=== PATIENT | female | born 1975 | race Caucasian/White ===

== ENCOUNTER → 2016-07-12 | Outpatient (CLI) | payer OTHER ==
--- NOTE | 2016-07-12 13:25 | MM ---
Reason for exam: additional evaluation requested from prior study. History: Patient is nulliparous. Family history of breast cancer in mother at age 68. Took hormonal contraceptives beginning at age 18. Physical Findings: Nurse Summary: 1cm nodule in the left breast at 12:30 (nurse rené). MG Diagnostic Mammo LT w CAD CC and MLO view(s) were taken of the left breast. There are scattered fibroglandular densities. The questioned anterior to middle depth asymmetry medial to the retroareolar plane does not persist on additional views. Palpable marker superiorly. These results were verbally communicated with the patient and result sheet given to the patient on 07/12/16. ASSESSMENT: Incomplete: need additional imaging evaluation, BI-RAD 0 RECOMMENDATION: Ultrasound of the left breast.
--- NOTE | 2016-07-12 13:30 | USB ---
Reason for exam: additional evaluation requested from abnormal screening. History: Patient is nulliparous. Family history of breast cancer in mother at age 68. Took hormonal contraceptives beginning at age 18. US Breast LT Left breast ultrasound includes all four quadrants, the retroareolar region and axilla. Finding demonstrates a 0.46 x 0.54cm echogenic lesion at 12 o'clock suggestive of a lipoma, a 1.5 x 0.3 x 1.7cm dermal lesion at 3 o'clock corresponding to the clinically apparent skin lesion and a 0.4 x 0.3 x 0.3cm echoic lesion at 11 o'clock suggestive of a lipoma. A precautionary 6 month follow up mammogram is recommended. These results were verbally communicated with the patient and result sheet given to the patient on 07/12/16. ASSESSMENT: Probably benign, BI-RAD 3 RECOMMENDATION: Follow-up diagnostic mammogram of the left breast in 6 months. Manage on a clinical basis with regard to 3 o'clock cutaneous lesion possible infected boil.
== END | disposition home or self-care (01) ==
LOC: RADMAMWWP 09:41
PROVIDERS: ATTEND Family Medicine
DX: R92.8 Other abnormal and inconclusive findings on diagnostic imaging of breast (principal)
CPT/HCPCS: 76641; G0206

== ENCOUNTER → 2017-01-15 | Outpatient (CLI) | payer OTHER ==
--- NOTE | 2017-01-16 07:02 | MM ---
Reason for exam: follow-up at short interval from prior study. Last mammogram was performed 6 months ago. History: Patient had first child at age 31. Family history of breast cancer in mother at age 68. Took hormonal contraceptives beginning at age 18. Physical Findings: Nurse did not find any significant physical abnormalities on exam. MG 3D Diag Mammo W/Cad LT CC, MLO, and XCCL view(s) were taken of the left breast. Prior study comparison: July 12, 2016, left breast MG diagnostic mammo LT w CAD. July 12, 2016, left breast US breast LT. June 22, 2015, mammogram. There are scattered fibroglandular densities. The questioned medial asymmetry density is less defined. These results were verbally communicated with the patient and result sheet given to the patient on 01/15/17. ASSESSMENT: Negative, BI-RAD 1 RECOMMENDATION: Routine screening mammogram of both breasts in 5 months. Back on schedule May 2017.
== END | disposition home or self-care (01) ==
LOC: RADMAMWWP 10:14
PROVIDERS: ATTEND Family Medicine
DX: R92.8 Other abnormal and inconclusive findings on diagnostic imaging of breast (principal)
CPT/HCPCS: G0206; G0279

== ENCOUNTER → 2022-07-16 | Outpatient (CLI) | payer OTHER ==
[2022-07-16 13:43] VITALS: BP 155/77; PULSE 53; TEMP 98.2; BMI 60.7
--- NOTE | 2022-07-31 12:01 | P.HPBAR ---
Bariatric H&P - History & Physicial H&P Date: 07/16/22 History & Physicial: Visit/CC: lap band Patient initial contact: Initial weight: Initial weight in pounds: Height: 5 ft 5.5 in Initial BMI: Last weight: Current weight: 168.283 kg Current weight in pounds: 371.00 Current BMI: 60.7 [place] body weight (based on NIH guidelines): 57.833 kg Excess body weight loss: The patient is a 47 year-old F who presents for Bariatric Assessment. This a 47-year-old female is morbidly obese. BMI 61. Patient had Eligio surgery many years ago. She has had no follow-up with us. Patient has failed to lose weight. She is requesting conversion to sleeve gastrectomy. She has multiple comorbidities including diabetes and hypertension. Past Medical History Past Medical History: Atrial Fibrillation, Diabetes Mellitus, Hypertension, Osteoarthritis (OA), Sleep Apnea/CPAP/BIPAP Additional Past Medical History / Comment(s): anemia, uses CPAP, umbillical hernia History of Any Multi-Drug Resistant Organisms: None Reported Past Surgical History: Bariatric Surgery, Section, Hernia Repair Additional Past Surgical History / Comment(s): umbilical hernia. Lap Band 2005 Additional Past Anesthesia/Blood Transfusion Reaction / Comm: 3 transfusions in last 15 yrs . First after child Past Psychological History: Depression Smoking Status: Never smoker Past Alcohol Use History: None Reported Past Drug Use History: None Reported - Past Family History Father Family Medical History: Coronary Artery Disease (CAD), Diabetes Mellitus Mother Family Medical History: Cancer, Thyroid Disorder Additional Family Medical History / Comment(s): brakerry [place] Surgical - Exam Vital Signs Temp Pulse BP 98.2 F 53 L 155/77 07/16/22 13:35 07/16/22 13:35 07/16/22 13:35 - General well developed, well nourished - Eyes PERRL - ENT normal pinna - Neck no masses - Respiratory normal expansion - Cardiovascular Rhythm: regular - Abdomen Abdomen: soft, non tender Bariatric Assessment & Plan Plan: Morbid obesity. Patient was counseled extensively on sleeve gastrectomy. She will need a EGD performed. She will follow-up in 4 weeks. Bariatric Checklist Checklist: Plan: Checklist: EGD: 1. Hiatal hernia: 2. H. Pylori: HgbA1c: Vitamin D: Smoking: Primary care physician referral: Dr. Mojica Psychiatry clearance: Cardiology clearance: Sleep study: Diet journal: VTE risk score: VTE risk level: Rehab needs at discharge:
== END ==
LOC: BARWHC3 13:22
PROVIDERS: ATTEND Surgery
DX: E66.01 Morbid (severe) obesity due to excess calories (principal); Z98.84 Bariatric surgery status; I48.91 Unspecified atrial fibrillation; E11.9 Type 2 diabetes mellitus without complications; I10 Essential (primary) hypertension; M19.90 Unspecified osteoarthritis, unspecified site; Z68.44 Body mass index [BMI] 60.0-69.9, adult; Z88.1 Allergy status to other antibiotic agents; Z88.0 Allergy status to penicillin; Z88.8 Allergy status to other drugs, medicaments and biological substances
CPT/HCPCS: 99211

== ENCOUNTER 2022-08-02 06:57 | Day surgery (SDC) | payer OTHER ==
[2022-07-31 14:05] VITALS: BMI 61.5
[2022-08-02] MEDS ORDERED: LACTATED RINGERS 1,000 ML IV SCH (07:12)
[2022-08-02] MEDS ORDERED: LIDOCAINE 1% (10MG/ML) FOR IV START INTRADERMA PRN (07:12)
[2022-08-02 07:18] VITALS: TEMP 97.6
[2022-08-02 07:29] LABS: Glucose,Whole Blood 73 mg/dL (70-110)
[2022-08-02] MEDS ORDERED: KETAMINE 10 MG/ML 20 ML VIAL ONE (07:38)
[2022-08-02] MEDS ORDERED: LIDOCAINE 2% INJ 20 MG/ML (2 ML VIAL) ONE (07:38)
[2022-08-02] MEDS ORDERED: PROPOFOL 10 MG/ML 20 ML VIAL IV ONE (07:38)
[2022-08-02] MEDS ORDERED: MIDAZOLAM 2 MG/2 ML VIAL ONE (07:38)
--- NOTE | 2022-08-02 08:07 | P.OP ---
Date of Procedure: 08/02/22 Preoperative Diagnosis: Morbid obesity, BMI 59 GERD Screening colonoscopy Postoperative Diagnosis: Antral gastritis External hemorrhoids Procedure(s) Performed: EGD Colonoscopy Anesthesia: MAC Surgeon: Catracho Miller Pathology: other (Antrum) Condition: stable Disposition: PACU Description of Procedure: The patient's placed on the endoscopy table lateral position. She received IV sedation. The gastroscope placed oropharynx passed in the esophagus and into the stomach. Scope was then placed through the pylorus. First and second portion of duodenum appeared normal. Scope was then brought back the antrum this was mildly inflamed. A biopsies performed. Scope was then retroflexed and the remainder the stomach appeared normal. The GE junction was at 40 cm. The distal esophagus appeared normal. Proximal esophagus. Scope withdrawn. Next digital rectal exam was performed. This revealed a few external hemorrhoids. Flexible colonoscope was then placed patient anus and passed throughout the entire colon. The scope could not be placed into the cecum secondary to tortuosity valve. Scope back. The visualized right colon appeared normal. The transverse colon appeared normal. The descending colon appeared normal. The sigmoid colon appeared normal. Scope was then back the rectum this is normal. Scope was withdrawn for patient.
[2022-08-02 08:09] VITALS: RESP 16
[2022-08-02 08:22] VITALS: BP 119/77; PULSE 59
== END 2022-08-02 08:48 | disposition home or self-care (01) ==
LOC: ORWHC2ENDO 06:57
PROVIDERS: ATTEND Surgery
DX: Z12.11 Encounter for screening for malignant neoplasm of colon (principal); K29.50 Unspecified chronic gastritis without bleeding; K64.4 Residual hemorrhoidal skin tags; E66.01 Morbid (severe) obesity due to excess calories; K21.9 Gastro-esophageal reflux disease without esophagitis; I10 Essential (primary) hypertension; E78.5 Hyperlipidemia, unspecified; I48.91 Unspecified atrial fibrillation; G47.33 Obstructive sleep apnea (adult) (pediatric); E11.9 Type 2 diabetes mellitus without complications; F32.A Depression, unspecified; Z79.84 Long term (current) use of oral hypoglycemic drugs; Z68.43 Body mass index [BMI] 50.0-59.9, adult; Z79.899 Other long term (current) drug therapy
CPT/HCPCS: 88305; 45378; 43239; J2250; J2704; J2001

== ENCOUNTER → 2022-08-13 | Outpatient (CLI) | payer OTHER ==
[2022-08-13 13:40] VITALS: BP 143/67; PULSE 56; TEMP 98.9; BMI 57.3
--- NOTE | 2022-09-04 08:40 | P.HPBAR ---
Bariatric H&P - History & Physicial H&P Date: 08/13/22 History & Physicial: Visit/CC: EGD F/U Patient initial contact: Initial weight: Initial weight in pounds: Height: 5 ft 5.5 in Initial BMI: Last weight: Current weight: 158.757 kg Current weight in pounds: 350.00 Current BMI: 57.3 [place] body weight (based on NIH guidelines): 57.833 kg Excess body weight loss: The patient is a 47 year-old F who presents for Bariatric Assessment. Patient presents today for preoperative bariatric consultation. Patient has had lifetime problems obesity. Patient underwent recent EGD. Some mild gastritis. Patient is interested in sleeve gastrectomy. Patient has an excellent understanding of skin gastric sleeve she'll shows a risk Of the procedure including gastric staple line bleeding, perforation or obstruction. Past Medical History Past Medical History: Atrial Fibrillation, Diabetes Mellitus, Eye Disorder, GERD/Reflux, Hyperlipidemia, Hypertension, Osteoarthritis (OA), Sleep Apnea/CPAP/BIPAP Additional Past Medical History / Comment(s): 2 EPISODES OF AFIB. USES C PAP MACHINE. HEALING LT BREAST ABSCESS AREA. RT EYE DRY AMD, LT EYE WET AMD History of Any Multi-Drug Resistant Organisms: None Reported Past Surgical History: Bariatric Surgery, Section, Hernia Repair Additional Past Surgical History / Comment(s): umbilical hernia. Lap Band 2005. COLONOSCOPY/EGD. I & D LT BREAST ABSCESS Past Anesthesia/Blood Transfusion Reactions: No Reported Reaction Additional Past Anesthesia/Blood Transfusion Reaction / Comm: 3 transfusions in last 15 yrs . First after child Past Psychological History: Depression Smoking Status: Never smoker Past Alcohol Use History: None Reported Past Drug Use History: None Reported - Past Family History Father Family Medical History: Coronary Artery Disease (CAD), Diabetes Mellitus Mother Family Medical History: Cancer, Thyroid Disorder Additional Family Medical History / Comment(s): mickie grijalva Surgical - Exam Vital Signs Temp Pulse BP 98.9 F 56 L 143/67 08/13/22 13:34 08/13/22 13:34 08/13/22 13:34 - General well developed, well nourished, no distress - Eyes PERRL - ENT normal pinna - Abdomen Abdomen: soft, non tender Bariatric Assessment & Plan Plan: Morbid obesity. Patient will be attempted to obtain insurance authorization for laparoscopic sleeve gastric. She will follow-up in 8 weeks. Bariatric Checklist Checklist: Plan: Checklist: EGD: 1. Hiatal hernia: 2. H. Pylori: HgbA1c: Vitamin D: Smoking: Primary care physician referral: Dr. Mojica Psychiatry clearance: Cardiology clearance: Sleep study: Diet journal: VTE risk score: VTE risk level: Rehab needs at discharge:
== END ==
LOC: BARWHC3 12:44
PROVIDERS: ATTEND Surgery
DX: E66.01 Morbid (severe) obesity due to excess calories (principal); K29.70 Gastritis, unspecified, without bleeding; I48.91 Unspecified atrial fibrillation; E11.9 Type 2 diabetes mellitus without complications; K21.9 Gastro-esophageal reflux disease without esophagitis; E78.5 Hyperlipidemia, unspecified; I10 Essential (primary) hypertension; M19.90 Unspecified osteoarthritis, unspecified site; H57.9 Unspecified disorder of eye and adnexa; G47.33 Obstructive sleep apnea (adult) (pediatric); Z99.89 Dependence on other enabling machines and devices; Z68.43 Body mass index [BMI] 50.0-59.9, adult; Z98.84 Bariatric surgery status; Z88.0 Allergy status to penicillin; Z88.1 Allergy status to other antibiotic agents; Z88.8 Allergy status to other drugs, medicaments and biological substances; Z79.84 Long term (current) use of oral hypoglycemic drugs; Z79.899 Other long term (current) drug therapy; Z79.85 Long-term (current) use of injectable non-insulin antidiabetic drugs
CPT/HCPCS: 99211

== ENCOUNTER → 2022-10-08 | Outpatient (CLI) | payer OTHER ==
[2022-10-08 11:33] VITALS: BMI 56.9
[2022-10-08 13:03] VITALS: BP 156/72; PULSE 74; TEMP 98.1
[2022-10-08 19:21] LABS: HCT 38.6 % (37.2-46.3); HGB 12.3 d/dL (12.0-15.0); MCH 27.3 pg (27.0-32.0); MCHC 31.9 d/dL (32.0-37.0); MCV 85.8 FL (80.0-97.0); Mean Platelet Volume 9.2 FL (9.5-12.2); NRBC Per 100 WBC 0 X 10*3/uL (0.00-0.01); Platelet Count 243 X 10*3/uL (140-440); RDW 14.6 % (11.5-14.5); WBC 7.02 X 10*3/uL (4.50-10.00)
[2022-10-08 20:23] LABS: ALT 26 U/L (8-44); AST 24 U/L (13-35); Albumin 4.3 d/dL (3.8-4.9); Albumin/Globulin Ratio 1.72 Ratio (1.60-3.17); Alkaline Phosphatase 66 U/L (41-126); BUN/Creat Ratio 23.78 Ratio (12.00-20.00); Blood Urea Nitrogen 21.4 mg/dL (9.0-27.0); Calcium 9.2 mg/dL (8.7-10.3); Carbon Dioxide 22.2 mmol/L (21.6-31.8); Chloride 106 mmol/L (96-109); Globulin 2.5 d/dL (1.6-3.3); Glucose 106 mg/dL (70-110); Potassium 4.4 mmol/L (3.5-5.5); Sodium 143 mmol/L (135-145); Total Bilirubin 0.6 mg/dL (0.3-1.2); Total Protein 6.8 d/dL (6.2-8.2)
== END ==
LOC: BARWHC3 09:03
PROVIDERS: ATTEND Surgery
DX: E88.81 Metabolic syndrome and other insulin resistance (principal); E66.01 Morbid (severe) obesity due to excess calories; Z71.3 Dietary counseling and surveillance; Z68.43 Body mass index [BMI] 50.0-59.9, adult; Z88.0 Allergy status to penicillin; Z88.8 Allergy status to other drugs, medicaments and biological substances
CPT/HCPCS: 80053; 82306; 82607; 82746; 83036; 84425; 85027; 93005; 97804; 99211

== ENCOUNTER 2022-11-12 06:15 | Inpatient (IN) | payer OTHER ==
[~2022-11-12 06:15] MED LIST: ceFAZolin 3 GM in SODIUM CHLORIDE 0.9% 100 ML IVPB PRN
[2022-11-12] MEDS ORDERED: droPERidol 5 MG/2 ML VIAL IVP ONE (06:37)
[2022-11-12] MEDS ORDERED: LIDOCAINE 1% (10MG/ML) FOR IV START INTRADERMA PRN (06:37)
[2022-11-12] MEDS ORDERED: SCOPOLAMINE 1 MG/72 HR PATCH TRANSDERM ONE (06:37)
[2022-11-12] MEDS ORDERED: ONDANSETRON 4 MG/2 ML VIAL IVP ONE (06:37)
[2022-11-12] MEDS ORDERED: DEXAMETHASONE SOD PHOSPHATE 4 MG/ML 1 ML VIAL IV ONE (06:37)
[2022-11-12] MEDS: LACTATED RINGERS 1,000 ML IV SCH (06:46)
[2022-11-12 07:14] LABS: Glucose,Whole Blood 67 mg/dL (70-110)
[2022-11-12] MEDS ORDERED: DEXTROSE 50% SYRINGE 50 ML IVP ONE (07:21)
[2022-11-12] MEDS ORDERED: ENOXAPARIN 40 MG/0.4 ML SYRINGE SQ STA (07:32)
[2022-11-12] MEDS ORDERED: METOCLOPRAMIDE 5 MG/ML 2 ML VIAL ONE (07:35)
[2022-11-12] MEDS ORDERED: HYDROmorphone (PF) 1 MG/ML ONE (07:35)
[2022-11-12] MEDS ORDERED: ROCURONIUM 10 MG/ML (5 ML VIAL) IV ONE (07:35)
[2022-11-12] MEDS ORDERED: SUCCINYLCHOLINE CHLORIDE 200 MG/10 ML VIAL IV ONE (07:35)
[2022-11-12] MEDS ORDERED: ONDANSETRON 4 MG/2 ML VIAL ONE (07:35)
[2022-11-12] MEDS ORDERED: PROPOFOL 10 MG/ML 20 ML VIAL IV ONE (07:35)
[2022-11-12] MEDS ORDERED: NEOSTIGMINE 1 MG/ML 10 ML VIAL ONE (07:35)
[2022-11-12] MEDS ORDERED: LIDOCAINE 2% INJ 20 MG/ML (2 ML VIAL) ONE (07:35)
[2022-11-12] MEDS ORDERED: fentaNYL (PF) 50 MCG/ML 2 ML AMP ONE (07:35)
[2022-11-12] MEDS ORDERED: GLYCOPYRROLATE 0.2 MG/ML 2 ML VIAL ONE (07:35)
[2022-11-12] MEDS ORDERED: KETOROLAC 15 MG/ML 1 ML VIAL ONE (07:35)
[2022-11-12] MEDS ORDERED: METOCLOPRAMIDE 5 MG/ML 2 ML VIAL IVP ONE (07:38)
[2022-11-12 07:40] LABS: Glucose,Whole Blood 114 mg/dL (70-110)
[2022-11-12] MEDS ORDERED: BUPIVACAINE (PF) 0.25% 10 ML VIAL SQ ONE (08:01)
[2022-11-12] MEDS ORDERED: LACTATED RINGERS 1,000 ML IV ONE (08:35)
--- NOTE | 2022-11-12 09:32 | P.GSHP ---
History of Present Illness H&P Date: 11/12/22 Chief Complaint: Morbid obesity This a 47-year-old female who has a lifetime problems obesity. Patient has had a previous LAP-BAND device placed approximately 20 years ago. Patient has failed to lose weight. Her band has been unable to be adjusted secondary to dysphagia related to band adjustment. Patient presents today for removal of LAP-BAND conversion sleeve gastrectomy. Her BMI is 55. She has multiple comorbid is. The prep patient aware the risks of surgery including possible gastric sleeve staple line disruption, bleeding and scarring. Past Medical History Past Medical History: Atrial Fibrillation, Blood Disorder, Diabetes Mellitus, Eye Disorder, GERD/Reflux, Hyperlipidemia, Hypertension, Neurologic Disorder, Osteoarthritis (OA), Sleep Apnea/CPAP/BIPAP Additional Past Medical History / Comment(s): HX MIGRAINES, NONE IN YRS. HX 2 EPISODES OF AFIB. USES CPAP MACHINE. RIGHT EYE DRY MACULAR DEGENERATION, LEFT EYE WET MACULAR DEGENERATION. PRONE TO CYSTS. "LOW BLOOD COUNTS", hx blood [place] sfusions X3, last 7 yrs ago. Neuropathy bilateral feet. History of Any Multi-Drug Resistant Organisms: None Reported Past Surgical History: Bariatric Surgery, Section, Hernia Repair Additional Past Surgical History / Comment(s): Umbilical hernia repair, Lap Band 2005, COLONOSCOPY/EGD, I&D LEFT BREAST ABSCESS. Past Anesthesia/Blood Transfusion Reactions: No Reported Reaction Additional Past Anesthesia/Blood Transfusion Reaction / Comment(s): Hx blood transfusions X3 with no problems, last 7 yrs ago. Past Psychological History: Depression Smoking Status: Never smoker Past Alcohol Use History: None Reported Past Drug Use History: None Reported - Past Family History Father Family Medical History: Coronary Artery Disease (CAD), Diabetes Mellitus Mother Family Medical History: Cancer, Thyroid Disorder Additional Family Medical History / Comment(s): Breast cancer. Medications and Allergies Home Medications Medication Instructions Recorded Confirmed Type Atorvastatin [Lipitor] 20 mg PO QAM 06/21/22 11/12/22 History DULoxetine HCL [Cymbalta] 60 mg PO QAM 06/21/22 11/12/22 History Dulaglutide [Trulicity] 1.5 mg SQ TH 06/21/22 11/12/22 History Metformin Er 750mg 1,500 mg PO HS 06/21/22 11/12/22 History [place]-3 Acid Ethyl Esters [Lovaza] 2 gm PO BID 06/21/22 11/12/22 History glipiZIDE XL [Glucotrol XL] 20 mg PO QAM 06/21/22 11/12/22 History traZODone HCL [Desyrel] 100 mg PO HS 06/21/22 11/12/22 History Metoprolol/Hydrochlorothiazide 1 tab PO QAM 07/31/22 11/12/22 History [Lopressor Hct 100-25 mg Tab] Minocycline HCl [Minocin] 100 mg PO BID 11/08/22 11/12/22 History lisinopriL [Zestril] 5 mg PO HS 11/08/22 11/12/22 History Allergies Allergy/AdvReac Type Severity Reaction Status Date / Time amoxicillin [From Augmentin] Allergy Rash/Hives Verified 11/12/22 06:55 clavulanic acid Allergy Rash/Hives Verified 11/12/22 06:55 [From Augmentin] Penicillins Allergy Rash/Hives Verified 11/12/22 06:55 vancomycin Allergy Dyspnea Verified 11/12/22 06:55 Surgical - Exam Vital Signs Temp Pulse Resp BP Pulse Ox 97.0 F L 48 L 20 100/50 100 11/12/22 06:45 11/12/22 06:45 11/12/22 06:45 11/12/22 06:45 11/12/22 06:45 - General well developed, well nourished, no distress - Eyes PERRL - ENT normal pinna - Neck no masses - Respiratory normal expansion - Cardiovascular Rhythm: regular - Abdomen Large incisional hernia located in the periumbilical area Abdomen: soft, non tender Results - Labs Abnormal Lab Results - Last 24 Hours (Table) 11/12/22 11/12/22 Range/Units 07:12 07:38 POC Glucose (mg/dL) 67 L 114 H (70-110) mg/dL Assessment and Plan Assessment: Morbid obesity. 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
[2022-11-12 09:38] LABS: Glucose,Whole Blood 121 mg/dL (70-110)
[2022-11-12] MEDS ORDERED: ONDANSETRON 4 MG/2 ML VIAL IVP PRN (09:59)
[2022-11-12] MEDS ORDERED: NALOXONE 0.4 MG/ML 1 ML VIAL IV PRN (09:59)
[2022-11-12] MEDS: HYDROmorphone 0.5 MG/0.5 ML SYRINGE IVP PRN ×3 (10:09→13:53)
--- NOTE | 2022-11-12 10:23 | P.OP ---
Date of Procedure: 11/12/22 Preoperative Diagnosis: Morbid obesity, BMI 55 Postoperative Diagnosis: Morbid obesity, BMI 55 Procedure(s) Performed: Laparoscopic removal of LAP-BAND system Laparoscopic sleeve gastrectomy Anesthesia: PANFILO Surgeon: Catracho Miller Estimated Blood Loss (ml): 10 Pathology: other (Stomach) Condition: stable Disposition: PACU Description of Procedure: The patient's placed on the endoscopy table in operating table in the supine position. She received general endotracheal tube anesthesia. She was then placed in dorsal lithotomy position. Her abdomen was prepped and draped usual sterile fashion. Patient had a large incisional hernia located near the umbilicus. Next the skin was anesthetized at the LAP-BAND port site. Using blunt and sharp dissection with cautery the LAP-BAND port was dissected free and then the PEG tube was then cut and the port was removed. Using a 5 mm optical trocar under direct vision the peritoneal cavity was entered. The abdomen was insufflated. After adequate insufflation the laparoscope was placed back into the pleural cavity. Next a 5 mm trocar is placed in the left epigastric position and another 5 mm trocar was placed in the right lateral position a 15 mm trocar is placed in the mid abdominal position and then a 5 mm trochars placed in the left lateral position. The patient had a very large liver. The trocar placement from the liver retractor was not possible. A new 5 mm trochars placed approximate 4 cm below the initial trocar. The left lateral lobe was liver was retracted. The LAP- BAND device was visualized. The adhesions lap band were then lysed using electrocautery. The anterior gastric wall plication was taken down with sharp dissection The LAP-BAND device then cut and withdrawn from the stomach and then withdrawn through the 15 mm trocar. Next the greater curvature of the stomach was dissected. The greater curvature was dissected with the Harmonic scissors. The dissection occurred proximally 4 cm from the pylorus to the level of the angle his. Next a 40-Divehi bougie dilator was placed into the stomach. The powered echelon stapler with staple line reinforcement was used. Then using the URSULA stapler sequential firings of the stapler were performed to create the sleeve gastrectomy. Next the dilator was withdrawn. The stomach was then insufflated with methylene blue. There is no evidence of any extravasation approximate 200 mL of methylene blue saline was placed. This was aspirated. The stomach was then irrigated there is no bleeding seen. The gastric remnant was withdrawn through the 15 mm trocar site. The trochars withdrawn. The skin was closed with interrupted 3-0 Monocryl suture. Sterile dressings was applied. Patient top she will she was sent to recovery room in stable condition.
[2022-11-12] MEDS: KETOROLAC 15 MG/ML 1 ML VIAL IVP SCH ×2 (15:35→17:19)
[2022-11-12] MEDS: ALBUTEROL NEBULIZED 2.5 MG/3 ML INHALATION SCH ×3 (15:35→20:06)
[2022-11-12] MEDS: 0.9% NACL WITH KCL 20 MEQ/L 1,000 ML IV SCH ×2 (16:38→23:25)
[2022-11-12] MEDS: HYDROmorphone 1 MG/ML 1 ML SYRINGE IVP PRN ×2 (17:20→20:46)
[2022-11-12] MEDS: traZODone HCL 100 MG TAB PO SCH (20:46)
[2022-11-12] MEDS: ENOXAPARIN 40 MG/0.4 ML SYRINGE SQ SCH (20:46)
[2022-11-12] MEDS ORDERED: lisinopriL 5 MG TAB PO SCH (21:00)
--- NOTE | 2022-11-12 21:25 | P.CONS ---
History of Present Illness - Reason for Consult Consult date: 11/12/22 Medical management Requesting physician: Catracho Miller - Chief Complaint Sleeve gastrectomy - History of Present Illness This is a pleasant 47 years old female with past medical history of atrial fibrillation, hypertension, diabetes mellitus. SAM with CPAP, polycystic ovarian syndrome. Today patient has undergone lap band removal and underwent sleeve gastrectomy by Dr. Anders Miller. Postprocedure sitting up in a chair. Slight nausea. Some pain at the operative site. No dizziness no LAD noted. No chest pain or shortness of breath. Review of systems: GEN.: Tired EYES: None HEENT: None NECK: None RESPIRATORY: None CARDIOVASCULAR: None GASTROINTESTINAL: Operative site pain GENITOURINARY: None MUSCULOSKELETAL: None LYMPHATICS: None HEMATOLOGICAL: None PSYCHIATRY: None NEUROLOGICAL: None Social history: No smoking. No alcohol. Physical examination: VITAL SIGNS: 98, 60, 18, 135/77, 98% on 2 L GENERAL: BMI 54.7, sitting up in a chair awake slightly uncomfortable. EYES: Pupils equal. Conjunctiva normal. HEENT: External appearance of nose and ears normal, oral cavity grossly normal. NECK: JVD not raised; masses not palpable. HEART: First and second heart sounds are normal; no edema. LUNGS: Respiratory rate normal; clear to auscultation. ABDOMEN: Soft, tender, liver spleen not palpable, no masses palpable. PSYCH: Alert and oriented x3; mood and affect normal. MUSCULOSKELETAL:No Clubbing/cyanosis;muscles-grossly intact NEUROLOGICAL: Cranial nerves grossly intact; no facial asymmetry, power and sensation grossly intact. LYMPHATICS: No lymph nodes palpable in the axilla and neck INVESTIGATIONS, reviewed in the clinical context: 10/08/2022: White count 7 hemoglobin 12.3 platelets 243 potassium 4.4 creatinine 0.9 Assessment and plan: -Postoperative: Removal of lap band and sleeve gastrectomy by Dr. Miller. Bariatric clear liquid diet. -Diabetes mellitus type 2, on oral hypoglycemic. Hold.-Glucotrol XL 20 mg. Trulicity 1.5 mg subcu Saturday,. Follow Accu-Cheks sliding scale -Hyperlipidemia Lipitor 20 mg -GERD Pepcid 20 mg as needed -Depression Desyrel -Essential hypertension Lopressor hydrochlorothiazide 100/50 one tablet daily- -Osteoarthritis Pain meds when necessary -Obstructive sleep apnea CPAP -Morbid obesity BMI 54.7. Patient has undergone sleeve gastrectomy. Weight loss measures. Discussed patient. Questions answered. Past Medical History Past Medical History: Atrial Fibrillation, Diabetes Mellitus, Hypertension, Osteoarthritis (OA), Sleep Apnea/CPAP/BIPAP Additional Past Medical History / Comment(s): anemia History of Any Multi-Drug Resistant Organisms: None Reported Past Surgical History: Section Additional Past Surgical History / Comment(s): umbilical hernia. Lap Band In place Additional Past Anesthesia/Blood Transfusion Reaction / Comment(s): 3 transfusions in last 15 yrs . First after child Past Psychological History: Depression Smoking Status: Never smoker Past Alcohol Use History: None Reported Past Drug Use History: None Reported - Past Family History Father Family Medical History: Coronary Artery Disease (CAD), Diabetes Mellitus Mother Family Medical History: Cancer, Thyroid Disorder Additional Family Medical History / Comment(s): brakerry grijalva Past Medical History Past Medical History: Atrial Fibrillation, Blood Disorder, Diabetes Mellitus, Eye Disorder, GERD/Reflux, Hyperlipidemia, Hypertension, Neurologic Disorder, Osteoarthritis (OA), Sleep Apnea/CPAP/BIPAP Additional Past Medical History / Comment(s): HX MIGRAINES, NONE IN YRS. HX 2 EPISODES OF AFIB. USES CPAP MACHINE. RIGHT EYE DRY MACULAR DEGENERATION, LEFT EYE WET MACULAR DEGENERATION. PRONE TO CYSTS. "LOW BLOOD COUNTS", hx blood transfusions X3, last 7 yrs ago. Neuropathy bilateral feet. History of Any Multi-Drug Resistant Organisms: None Reported Past Surgical History: Bariatric Surgery, Section, Hernia Repair Additional Past Surgical History / Comment(s): Umbilical hernia repair, Lap Band 2005, COLONOSCOPY/EGD, I&D LEFT BREAST ABSCESS. Past Anesthesia/Blood Transfusion Reactions: No Reported Reaction Additional Past Anesthesia/Blood Transfusion Reaction / Comm: Hx blood transfusions X3 with no problems, last 7 yrs ago. Past Psychological History: Depression Smoking Status: Never smoker Past Alcohol Use History: None Reported Past Drug Use History: None Reported - Past Family History Father Family Medical History: Coronary Artery Disease (CAD), Diabetes Mellitus Mother Family Medical History: Cancer, Thyroid Disorder Additional Family Medical History / Comment(s): Breast cancer. Medications and Allergies Home Medications Medication Instructions Recorded Confirmed Type Atorvastatin [Lipitor] 20 mg PO QAM 06/21/22 11/12/22 History DULoxetine HCL [Cymbalta] 60 mg PO QAM 06/21/22 11/12/22 History Dulaglutide [Trulicity] 1.5 mg SQ TH 06/21/22 11/12/22 History Metformin Er 750mg 1,500 mg PO HS 06/21/22 11/12/22 History [place]-3 Acid Ethyl Esters [Lovaza] 2 gm PO BID 06/21/22 11/12/22 History glipiZIDE XL [Glucotrol XL] 20 mg PO QAM 06/21/22 11/12/22 History traZODone HCL [Desyrel] 100 mg PO HS 06/21/22 11/12/22 History Metoprolol/Hydrochlorothiazide 1 tab PO QAM 07/31/22 11/12/22 History [Lopressor Hct 100-25 mg Tab] Minocycline HCl [Minocin] 100 mg PO BID 11/08/22 11/12/22 History lisinopriL [Zestril] 5 mg PO HS 11/08/22 11/12/22 History Allergies Allergy/AdvReac Type Severity Reaction Status Date / Time amoxicillin [From Augmentin] Allergy Rash/Hives Verified 11/12/22 06:55 clavulanic acid Allergy Rash/Hives Verified 11/12/22 06:55 [From Augmentin] Penicillins Allergy Rash/Hives Verified 11/12/22 06:55 vancomycin Allergy Dyspnea Verified 11/12/22 06:55 Physical Exam Vitals: Vital Signs Temp Pulse Pulse Pulse Pulse Resp BP 11/12/22 18:58 98.0 F 60 18 135/77 11/12/22 16:54 11/12/22 16:44 60 11/12/22 16:35 56 L 11/12/22 15:17 97.4 F L 54 L 18 155/84 11/12/22 14:43 56 L 17 148/66 11/12/22 14:15 63 17 141/61 11/12/22 13:45 56 L 23 138/63 11/12/22 13:15 55 L 16 113/58 11/12/22 12:45 52 L 14 157/75 11/12/22 12:15 54 L 12 139/64 11/12/22 11:45 56 L 17 160/74 11/12/22 11:15 54 L 15 160/76 11/12/22 10:45 64 14 158/77 11/12/22 10:30 56 L 15 167/58 11/12/22 10:15 55 L 16 157/75 11/12/22 10:00 53 L 17 168/80 11/12/22 09:45 57 L 18 157/77 11/12/22 09:29 96.8 F L 63 16 157/78 11/12/22 06:45 97.0 F L 48 L 20 100/50 Pulse Ox 11/12/22 18:58 98 11/12/22 16:54 100 11/12/22 16:44 11/12/22 16:35 11/12/22 15:17 100 11/12/22 14:43 98 11/12/22 14:15 98 11/12/22 13:45 100 11/12/22 13:15 98 11/12/22 12:45 97 11/12/22 12:15 100 11/12/22 11:45 100 11/12/22 11:15 98 11/12/22 10:45 95 11/12/22 10:30 92 L 11/12/22 10:15 95 11/12/22 10:00 95 11/12/22 09:45 94 L 11/12/22 09:29 99 11/12/22 06:45 100 Intake and Output 11/12/22 11/12/22 11/12/22 06:59 14:59 22:59 Intake Total 100 1850 260 Output Total 30 Balance 100 1820 260 Intake: IV 100 1850 Intake, IV Titration 260 Amount 0.9% NaCl with KCl 20 Meq 260 /l 1,000 ml @ 150 mls/hr IV .[id number] [facility] Rx#: [id number] Output: Estimated Blood Loss 30 Other: Voiding Method Toilet Weight 149.2 kg Results Labs: Abnormal Lab Results - Last 24 Hours (Table) 11/12/22 11/12/22 11/12/22 Range/Units 07:12 07:38 09:37 POC Glucose (mg/dL) 67 L 114 H 121 H (70-110) mg/dL
[2022-11-13] MEDS: LACTATED RINGERS 1,000 ML IV SCH (00:18)
[2022-11-13] MEDS: KETOROLAC 15 MG/ML 1 ML VIAL IVP SCH ×2 (00:21→05:44)
[2022-11-13] MEDS: 0.9% NACL WITH KCL 20 MEQ/L 1,000 ML IV SCH ×4 (05:44→13:50)
[2022-11-13] MEDS: ALBUTEROL NEBULIZED 2.5 MG/3 ML INHALATION SCH ×4 (08:27→21:19)
[2022-11-13] MEDS ORDERED: hydroCHLOROthiazide 25 MG TAB PO SCH (09:00)
[2022-11-13] MEDS: HYDROmorphone 1 MG/ML 1 ML SYRINGE IVP PRN ×2 (10:47→18:28)
[2022-11-13] MEDS: ENOXAPARIN 40 MG/0.4 ML SYRINGE SQ SCH ×2 (10:50→20:29)
[2022-11-13] MEDS: DULoxetine HCL 60 MG CAPSULE.DR PO SCH (10:50)
[2022-11-13] MEDS: ATORVASTATIN 20 MG TAB PO SCH (10:50)
[2022-11-13] MEDS: METOPROLOL TARTRATE 50 MG TAB PO SCH (10:51)
[2022-11-13 11:18] LABS: Basophils # (A) 0.01 X 10*3/uL (0.00-0.10); Basophils % (A) 0.1 %; Blood Urea Nitrogen 34.3 mg/dL (9.0-27.0); Calcium 8.6 mg/dL (8.7-10.3); Carbon Dioxide 23.9 mmol/L (21.6-31.8); Chloride 101 mmol/L (96-109); Eosinophils # (A) 0.04 X 10*3/uL (0.04-0.35); Eosinophils % (A) 0.6 %; HCT 34.7 % (37.2-46.3); HGB 10.9 d/dL (12.0-15.0); Lymphocytes # (A) 1.19 X 10*3/uL (0.90-5.00); Lymphocytes % (A) 17.8 %; MCH 27.5 pg (27.0-32.0); MCHC 31.4 d/dL (32.0-37.0); MCV 87.6 FL (80.0-97.0); Mean Platelet Volume 9.4 FL (9.5-12.2); Monocytes # (A) 0.67 X 10*3/uL (0.20-1.00); NRBC Per 100 WBC 0 X 10*3/uL (0.00-0.01); Neutrophils # (A) 4.73 X 10*3/uL (1.80-7.70); Neutrophils % (A) 71.1 %; Phosphorus 4.8 mg/dL (2.4-5.1); Platelet Count 223 X 10*3/uL (140-440); RBC 3.96 X 10*6/uL (4.10-5.20); RDW 15.3 % (11.5-14.5); Sodium 136 mmol/L (135-145); WBC 6.67 X 10*3/uL (4.50-10.00)
--- NOTE | 2022-11-13 11:39 | P.PN ---
Subjective This is a pleasant 47 years old female with past medical history of atrial fibrillation, hypertension, diabetes mellitus. SAM with CPAP, polycystic ovarian syndrome. Today patient has undergone lap band removal and underwent sleeve gastrectomy by Dr. Anders Miller. Postprocedure sitting up in a chair. Slight nausea. Some pain at the operative site. No dizziness no LAD noted. No chest pain or shortness of breath. 11/13/2022 This is a pleasant 47 years old female with morbid obesity underwent laparoscopic removal of the lap band system and laparoscopic sleeve gastrectomy. Today is postoperative day #1. She sitting in chair complaining of pain and shoulder area She also had some discomfort at the surgical site and she is a liquid diet before surgery team. She stated that she needed to straight cath to help her urinate last night. However this morning she denies dysuria or urgency or suprapubic discomfort. Bladder scan was ordered. Also labs came back evidence with acute kidney injury with creatinine went up to 1.9. Creatinine was normal last month. Hemoglobin 10.9 which is expected. Urine analysis is ordered and nephrology consulted. DC Toradol. She is currently on normal saline at 1 50 mL/h. Active Medications Generic Name Dose Route Start Last Admin Trade Name Freq PRN Reason Stop Dose Admin Albuterol Sulfate 2.5 mg 11/12/22 12:00 11/13/22 11:22 Albuterol Nebulized 2.5 Mg/3 Ml INHALATION Not Given RT-QID TANK Atorvastatin Calcium 20 mg 11/13/22 09:00 11/13/22 10:50 Atorvastatin 20 Mg Tab PO 20 mg QAM TANK Administration Duloxetine HCl 60 mg 11/13/22 09:00 11/13/22 10:50 Duloxetine Hcl 60 Mg Capsule.Dr PO 60 mg QAM TANK Administration Enoxaparin Sodium 40 mg 11/12/22 20:00 11/13/22 10:50 Enoxaparin 40 Mg/0.4 Ml Syringe SQ 40 mg Q12H TANK Administration Hydrochlorothiazide 25 mg 11/13/22 09:00 11/13/22 10:50 Hydrochlorothiazide 25 Mg Tab PO 25 mg QAM TANK Administration Hydromorphone HCl 1 mg 11/12/22 09:59 11/13/22 10:47 Hydromorphone 1 Mg/Ml 1 Ml Syringe IVP 1 mg Q3HR PRN Administration Severe Pain (7 to 10) Lactated Ringer's 1,000 mls @ 20 mls/hr 11/12/22 06:37 11/13/22 00:18 Lactated Ringers IV Not Given .Q24H TANK Potassium Chloride/Sodium Chloride 1,000 mls @ 150 mls/hr 11/12/22 15:00 11/13/22 05:48 Ns-Kcl 20 Meq/L Iv Solution IV 11/13/22 15:01 150 mls/hr .Q6H40M TANK Administration Lidocaine HCl 0.1 ml 11/12/22 06:37 Lidocaine 1% (10mg/Ml) For Iv Start INTRADERMA PER PROTOCOL PRN IV Start Lisinopril 5 mg 11/12/22 21:00 11/12/22 20:46 Lisinopril 5 Mg Tab PO 5 mg HS TANK Administration Metoprolol Tartrate 100 mg 11/13/22 09:00 11/13/22 10:51 Metoprolol Tartrate 50 Mg Tab PO 100 mg QAM TANK Administration Naloxone HCl 0.2 mg 11/12/22 09:59 Naloxone 0.4 Mg/Ml 1 Ml Vial IV Q2M PRN Opioid Reversal Dulaglutide [ 1.5 mg 11/15/22 09:00 Trulicity] 1.5 Mg/0. SQ 5 Ml Each TH [facility] Ondansetron HCl 4 mg 11/12/22 09:59 Ondansetron 4 Mg/2 Ml Vial IVP Q8HR PRN Nausea And Vomiting Trazodone HCl 100 mg 11/12/22 21:00 11/12/22 20:46 Trazodone Hcl 100 Mg Tab PO 100 mg HS TANK Administration Objective - Vital Signs Vital signs: Vital Signs Temp 97.7 F 11/13/22 07:45 Pulse 88 11/13/22 08:40 Resp 18 11/13/22 10:47 BP 135/81 11/13/22 07:45 Pulse Ox 99 11/13/22 08:29 FiO2 21 11/13/22 08:29 Intake & Output 11/12/22 11/13/22 11/13/22 18:59 06:59 18:59 Intake Total 2110 Output Total 30 300 Balance 2080 -300 Intake: IV 1850 Intake, IV Titration 260 Amount 0.9% NaCl with KCl 20 Meq 260 /l 1,000 ml @ 150 mls/hr IV .Q6H40M [facility] Rx#: [id number] Output: Urine 300 Straight 300 Estimated Blood Loss 30 Other: Voiding Method Toilet Toilet - Exam -GENERAL: The patient is alert and oriented x3, not in any acute distress. Obese HEENT: Pupils are round and equally reacting to light. EOMI. No scleral icterus. No conjunctival pallor. Normocephalic, atraumatic. No pharyngeal erythema. No thyromegaly. CARDIOVASCULAR: S1 and S2 present. No murmurs, rubs, or gallops. PULMONARY: Chest is clear to auscultation, no wheezing , no crackles. ABDOMEN: Soft, nontender, nondistended, normoactive bowel sounds. No palpable organomegaly. MUSCULOSKELETAL: No joint swelling or deformity. EXTREMITIES: No cyanosis, clubbing, or pedal edema. NEUROLOGICAL: Gross neurological examination did not reveal any focal deficits. SKIN: No rashes. no petechiae. - Labs CBC & Chem 7: 11/13/22 06:25 11/13/22 06:25 Labs: Abnormal Lab Results - Last 24 Hours (Table) 11/13/22 11/13/22 Range/Units 06:25 06:25 RBC 3.96 L (4.10-5.20) X 10*6/uL Hgb 10.9 L (12.0-15.0) d/dL Hct 34.7 L (37.2-46.3) % MCHC 31.4 L (32.0-37.0) d/dL RDW 15.3 H (11.5-14.5) % MPV 9.4 L (9.5-12.2) FL BUN 34.3 H (9.0-27.0) mg/dL Creatinine 1.9 H (0.6-1.5) mg/dL Est GFR (CKD-EPI) 32 L (>=60) Calcium 8.6 L (8.7-10.3) mg/dL Assessment and Plan Plan: - Acute kidney injury, suspected urinary retention. Rule out urinary retention. Check urine analysis. Check bladder scan. Nephrology consult. Decreased Toradol. No evidence of hypotension -Morbid obesity BMI 54.7. Patient has undergone sleeve gastrectomy. Weight loss measures. Postoperative: Removal of lap band and sleeve gastrectomy by and per Dr. Miller. Bariatric clear liquid diet. -Diabetes mellitus type 2, on oral hypoglycemic. Hold.-Glucotrol XL 20 mg. Trulicity 1.5 mg subcu Saturday,. Follow Accu-Cheks sliding scale -Hyperlipidemia Lipitor 20 mg -GERD Pepcid 20 mg as needed -Depression Desyrel -Essential hypertension Lopressor hydrochlorothiazide 100/50 one tablet daily- -Osteoarthritis Pain meds when necessary -Obstructive sleep apnea CPAP Thank you for consulting us, we will follow up with you
[2022-11-13 13:22] VITALS: BMI 54.7
[2022-11-13 13:31] LABS: Appearance,Urine Clear (Clear); Bilirubin,Urine Negative (Negative); Blood,Urine Small (Negative); Color,Urine Light Yellow; Glucose,Urine (UA) Negative (Negative); Hyaline Casts,Urine 1 /lpf (0-2); Ketones,Urine Negative (Negative); Leukocyte Esterase,Urine Negative (Negative); Mucus,Urine Rare /hpf; Nitrite,Urine Negative (Negative); Protein,Urine Negative (Negative); RBC,Urine 2 /hpf (0-5); Specific Gravity,Urine 1.012 (1.001-1.035); Squamous Epithelial Cell,Urine 1 /hpf (0-4); Urobilinogen,Urine <2.0 mg/dL (<2.0); WBC,Urine 1 /hpf (0-5)
--- NOTE | 2022-11-13 14:55 | P.PN ---
Subjective Progress Note Date: 11/13/22 CHIEF COMPLAINT: Morbid obesity HISTORY OF PRESENT ILLNESS: Patient is postop day #1 status post laparoscopic removal of lap band system and laparoscopic sleeve gastrectomy. The patient complaining of abdominal pain. Also complaining of pain in the shoulders. She reports that her swallowing is okay. Patient does not feel ready for discharge. Patient with possible urinary retention. Medicine service has ordered bladder scan and nephrology consulted for acute kidney injury. Patient did have issues with urinating yesterday and required to be straight cathed during the night. Patient reports that she is now urinating without difficulty. Bladder scan did not show evidence of urinary retention. Afebrile. WBC 6.67 Hgb 10.9 creatinine 1.9 magnesium 2.0 PHYSICAL EXAM: VITAL SIGNS: Reviewed. GENERAL: Well-developed in no acute distress. ABDOMEN: Soft. Nondistended. NEUROLOGIC: Alert and oriented. Cranial nerves II through XII grossly intact. ASSESSMENT: 1. Morbid obesity 2. Acute kidney injury PLAN: -Continue bariatric clear liquid diet -Continue IV fluids at 150 mL per hour -Agree with discontinuing the Toradol for GEOFFREY -Gas drops added for gas pain -Encourage patient to ambulate -Discontinue the hydrochlorothiazide and lisinopril because acute kidney injury -Monitor urine output -Encourage patient to use incentive spirometer -Repeat labs in a.m. -DVT prophylaxis Lovenox Physician Property Custodian note has been reviewed by physician. Signing provider agrees with the documented findings, assessment, and plan of care. Objective - Vital Signs Vital signs: Vital Signs Temp 97.5 F L 11/13/22 13:00 Pulse 81 11/13/22 13:00 Resp 16 11/13/22 13:00 BP 128/84 11/13/22 13:00 Pulse Ox 99 11/13/22 13:00 FiO2 21 11/13/22 08:29 Intake & Output 11/12/22 11/13/22 11/13/22 18:59 06:59 18:59 Intake Total 2110 200 Output Total 30 300 Balance 2080 -300 200 Weight 149.2 kg Intake: IV 1850 Intake, IV Titration 260 Amount 0.9% NaCl with KCl 20 Meq 260 /l 1,000 ml @ 150 mls/hr IV .Q6H40M [facility] Rx#: [id number] Oral 200 Output: Urine 300 Straight 300 Estimated Blood Loss 30 Other: Voiding Method Toilet Toilet - Labs CBC & Chem 7: 11/13/22 06:25 11/13/22 06:25 Labs: Abnormal Lab Results - Last 24 Hours (Table) 11/13/22 11/13/22 11/13/22 Range/Units 06:25 06:25 12:44 RBC 3.96 L (4.10-5.20) X 10*6/uL Hgb 10.9 L (12.0-15.0) d/dL Hct 34.7 L (37.2-46.3) % MCHC 31.4 L (32.0-37.0) d/dL RDW 15.3 H (11.5-14.5) % MPV 9.4 L (9.5-12.2) FL BUN 34.3 H (9.0-27.0) mg/dL Creatinine 1.9 H (0.6-1.5) mg/dL Est GFR (CKD-EPI) 32 L (>=60) Calcium 8.6 L (8.7-10.3) mg/dL Urine Blood Small H (Negative) Urine Mucus Rare H (None) /hpf
[2022-11-13] MEDS: SIMETHICONE 40 MG/0.6 ML DROPS 2,000 MG/30 ML BOTTLE PO SCH ×3 (16:56→20:30)
[2022-11-13] MEDS: traZODone HCL 100 MG TAB PO SCH (20:29)
[2022-11-14 05:51] LABS: Glucose,Whole Blood 119 mg/dL (70-110)
[2022-11-14] MEDS ORDERED: HYDROcodone/APAP 15 ML SOLUTION PO PRN (08:01)
[2022-11-14] MEDS: ALBUTEROL NEBULIZED 2.5 MG/3 ML INHALATION SCH ×3 (08:29→16:03)
[2022-11-14] MEDS: LACTATED RINGERS 1,000 ML IV SCH (08:32)
[2022-11-14] MEDS: DULoxetine HCL 60 MG CAPSULE.DR PO SCH (09:22)
[2022-11-14] MEDS: ATORVASTATIN 20 MG TAB PO SCH (09:22)
[2022-11-14] MEDS: METOPROLOL TARTRATE 50 MG TAB PO SCH (09:22)
[2022-11-14] MEDS: SIMETHICONE 40 MG/0.6 ML DROPS 2,000 MG/30 ML BOTTLE PO SCH ×2 (09:24→13:57)
[2022-11-14] MEDS: ENOXAPARIN 40 MG/0.4 ML SYRINGE SQ SCH (09:25)
--- NOTE | 2022-11-14 11:18 | P.NPCON ---
History of Present Illness - Reason for Consult acute renal failure - History of Present Illness Reason for consultation: Acute kidney injury History of present illness: Patient is a 47-year-old female seen in renal consultation for acute kidney injury. Patient baseline creatinine from September 2022 was 0.9 and was elevated at 1.9 yesterday. Patient has history of morbid obesity and underwent laparoscopic sleeve gastrectomy on 11/12/2022. Patient was receiving hydrochlorothiazide and Toradol. Both were last given 11/13/2022. Additionally she was also on lisinopril which was last given 11/12/2022. She was on IV fluids but now has been discontinued. She is on a liquid diet. Denies vomiting or diarrhea. Has been keeping liquids down. Patient does have history of type 2 diabetes. Denies history of coronary artery disease. Denies regular use of nonsteroidals. No vomiting or denies chest pain or shortness of breath. No fever or chills. Hemodynamically stable. Vital signs are stable. General: No acute distress. HEENT: Head exam is unremarkable. LUNGS: No audible rhonchi or wheezes. HEART: Rate and Rhythm are regular. ABDOMEN: Obese, nontender. EXTREMITITES: No edema. Past Medical History Past Medical History: Atrial Fibrillation, Blood Disorder, Diabetes Mellitus, Eye Disorder, GERD/Reflux, Hyperlipidemia, Hypertension, Neurologic Disorder, Osteoarthritis (OA), Sleep Apnea/CPAP/BIPAP Additional Past Medical History / Comment(s): HX MIGRAINES, NONE IN YRS. HX 2 EPISODES OF AFIB. USES CPAP MACHINE. RIGHT EYE DRY MACULAR DEGENERATION, LEFT EYE WET MACULAR DEGENERATION. PRONE TO CYSTS. "LOW BLOOD COUNTS", hx blood transfusions X3, last 7 yrs ago. Neuropathy bilateral feet. History of Any Multi-Drug Resistant Organisms: None Reported Past Surgical History: Bariatric Surgery, Section, Hernia Repair Additional Past Surgical History / Comment(s): Umbilical hernia repair, Lap Band 2005, COLONOSCOPY/EGD, I&D LEFT BREAST ABSCESS. Past Anesthesia/Blood Transfusion Reactions: No Reported Reaction Additional Past Anesthesia/Blood Transfusion Reaction / Comment(s): Hx blood tr ansfusions X3 with no problems, last 7 yrs ago. Past Psychological History: Depression Smoking Status: Never smoker Past Alcohol Use History: None Reported Past Drug Use History: None Reported - Past Family History Father Family Medical History: Coronary Artery Disease (CAD), Diabetes Mellitus Mother Family Medical History: Cancer, Thyroid Disorder Additional Family Medical History / Comment(s): Breast cancer. Medications and Allergies Home Medications Medication Instructions Recorded Confirmed Type Atorvastatin [Lipitor] 20 mg PO QAM 06/21/22 11/12/22 History DULoxetine HCL [Cymbalta] 60 mg PO QAM 06/21/22 11/12/22 History Dulaglutide [Trulicity] 1.5 mg SQ TH 06/21/22 11/12/22 History Metformin Er 750mg 1,500 mg PO HS 06/21/22 11/12/22 History [place]-3 Acid Ethyl Esters [Lovaza] 2 gm PO BID 06/21/22 11/12/22 History glipiZIDE XL [Glucotrol XL] 20 mg PO QAM 06/21/22 11/12/22 History traZODone HCL [Desyrel] 100 mg PO HS 06/21/22 11/12/22 History Metoprolol/Hydrochlorothiazide 1 tab PO QAM 07/31/22 11/12/22 History [Lopressor Hct 100-25 mg Tab] Minocycline HCl [Minocin] 100 mg PO BID 11/08/22 11/12/22 History lisinopriL [Zestril] 5 mg PO HS 11/08/22 11/12/22 History Allergies Allergy/AdvReac Type Severity Reaction Status Date / Time amoxicillin [From Augmentin] Allergy Rash/Hives Verified 11/12/22 06:55 clavulanic acid Allergy Rash/Hives Verified 11/12/22 06:55 [From Augmentin] Penicillins Allergy Rash/Hives Verified 11/12/22 06:55 vancomycin Allergy Dyspnea Verified 11/12/22 06:55 Physical Exam Vitals: Vital Signs Temp Pulse Pulse Resp BP Pulse Ox 11/14/22 10:55 20 11/14/22 08:38 74 11/14/22 08:31 97 11/14/22 08:29 70 11/14/22 07:47 98.5 F 86 22 126/79 92 L 11/14/22 07:45 98.5 F 70 20 130/88 98 11/14/22 01:04 97.8 F 68 19 136/73 97 11/13/22 21:29 70 11/13/22 21:19 68 11/13/22 20:02 98.5 F 64 19 132/57 97 11/13/22 13:00 97.5 F L 81 16 128/84 99 Intake and Output 11/13/22 11/14/22 11/14/22 22:59 06:59 14:59 Intake Total 920 Output Total 2100 700 Balance -1180 -700 Intake: Oral 920 Output: Urine 2100 700 Other: Voiding Method Toilet # Voids 4 Results - Lab Results Most recent lab results Calcium 8.6 mg/dL (8.7-10.3) L 11/13/22 06:25 Phosphorus 4.8 mg/dL (2.4-5.1) 11/13/22 06:25 Magnesium 2.0 mg/dL (1.5-2.4) 11/13/22 06:25 11/13/22 06:25 11/13/22 06:25 Assessment and Plan Plan: Assessment: 1. Acute kidney injury secondary to vasomotor nephropathy from diuretics, KELY inhibitor and NSAIDs. Creatinine 1.9 yesterday. Baseline creatinine near 1 from September 2022. UA benign. 2. Morbid obesity status post laparoscopic sleeve gastrectomy 11/12/2022. 3. Benign hypertension. Controlled. 4. Diabetes mellitus. Plan: Encourage oral intake. Avoid nephrotoxins. Hold off on diuretics and KELY inhibitor at this time. Toradol discontinued. Morning labs pending. If renal function improving, she can be discharged from nephrology standpoint. Repeat BMP and magnesium level to 3 days postdischarge. Follow-up outpatient in 1 week. Case discussed with surgery team. Thank you for the consultation. I will continue to follow the patient during her hospital stay.
[2022-11-14 11:20] LABS: HCT 33.3 % (37.2-46.3); HGB 10.4 d/dL (12.0-15.0); MCH 27.2 pg (27.0-32.0); MCHC 31.2 d/dL (32.0-37.0); MCV 86.9 FL (80.0-97.0); NRBC Per 100 WBC 0 X 10*3/uL (0.00-0.01); Platelet Count 201 X 10*3/uL (140-440); RBC 3.83 X 10*6/uL (4.10-5.20); RDW 15.4 % (11.5-14.5); WBC 5.98 X 10*3/uL (4.50-10.00)
[2022-11-14 11:36] LABS: Carbon Dioxide 23.3 mmol/L (21.6-31.8); Chloride 104 mmol/L (96-109); Glucose 113 mg/dL (70-110); Potassium 5.5 mmol/L (3.5-5.5); Sodium 137 mmol/L (135-145)
--- NOTE | 2022-11-14 12:25 | P.PN ---
Subjective This is a pleasant 47 years old female with past medical history of atrial fibrillation, hypertension, diabetes mellitus. SAM with CPAP, polycystic ovarian syndrome. Today patient has undergone lap band removal and underwent sleeve gastrectomy by Dr. Anders Miller. Postprocedure sitting up in a chair. Slight nausea. Some pain at the operative site. No dizziness no LAD noted. No chest pain or shortness of breath. 11/13/2022 This is a pleasant 47 years old female with morbid obesity underwent laparoscopic removal of the lap band system and laparoscopic sleeve gastrectomy. Today is postoperative day #1. She sitting in chair complaining of pain and shoulder area She also had some discomfort at the surgical site and she is a liquid diet before surgery team. She stated that she needed to straight cath to help her urinate last night. However this morning she denies dysuria or urgency or suprapubic discomfort. Bladder scan was ordered. Also labs came back evidence with acute kidney injury with creatinine went up to 1.9. Creatinine was normal last month. Hemoglobin 10.9 which is expected. Urine analysis is ordered and nephrology consulted. DC Toradol. She is currently on normal saline at 1 50 mL/h. 11/14/2022 patient reports improvement in her shoulder and stomach upset and pain. She feels better overall and she is agreeable to consume liquid diet at her pace and carefully Creatinine back to reference range at 1.0 Toradol discontinued. Nephrology consult is appreciated. Patient looks medically stable Objective - Vital Signs Vital signs: Vital Signs Temp 98.5 F 11/14/22 07:47 Pulse 74 11/14/22 08:38 Resp 22 11/14/22 07:47 BP 126/79 11/14/22 07:47 Pulse Ox 97 11/14/22 08:31 FiO2 21 11/13/22 08:29 Intake & Output 11/13/22 11/14/22 11/14/22 18:59 06:59 18:59 Intake Total 1120 Output Total 850 1950 Balance 270 -1950 Weight 149.2 kg Intake: Oral 1120 Output: Urine 850 1950 Other: Voiding Method Toilet # Voids 4 - Exam -GENERAL: The patient is alert and oriented x3, not in any acute distress. Obese HEENT: Pupils are round and equally reacting to light. EOMI. No scleral icterus. No conjunctival pallor. Normocephalic, atraumatic. No pharyngeal erythema. No thyromegaly. CARDIOVASCULAR: S1 and S2 present. No murmurs, rubs, or gallops. PULMONARY: Chest is clear to auscultation, no wheezing , no crackles. ABDOMEN: Soft, nontender, nondistended, normoactive bowel sounds. No palpable organomegaly. MUSCULOSKELETAL: No joint swelling or deformity. EXTREMITIES: No cyanosis, clubbing, or pedal edema. NEUROLOGICAL: Gross neurological examination did not reveal any focal deficits. SKIN: No rashes. no petechiae. - Labs CBC & Chem 7: 11/14/22 06:28 11/14/22 06:28 Labs: Abnormal Lab Results - Last 24 Hours (Table) 11/13/22 11/13/22 11/13/22 Range/Units 06:25 06:25 12:44 RBC 3.96 L (4.10-5.20) X 10*6/uL Hgb 10.9 L (12.0-15.0) d/dL Hct 34.7 L (37.2-46.3) % MCHC 31.4 L (32.0-37.0) d/dL RDW 15.3 H (11.5-14.5) % MPV 9.4 L (9.5-12.2) FL BUN 34.3 H (9.0-27.0) mg/dL Creatinine 1.9 H (0.6-1.5) mg/dL Est GFR (CKD-EPI) 32 L (>=60) POC Glucose (mg/dL) (70-110) mg/dL Calcium 8.6 L (8.7-10.3) mg/dL Urine Blood Small H (Negative) Urine Mucus Rare H (None) /hpf 11/14/22 Range/Units 05:50 RBC (4.10-5.20) X 10*6/uL Hgb (12.0-15.0) d/dL Hct (37.2-46.3) % MCHC (32.0-37.0) d/dL RDW (11.5-14.5) % MPV (9.5-12.2) FL BUN (9.0-27.0) mg/dL Creatinine (0.6-1.5) mg/dL Est GFR (CKD-EPI) (>=60) POC Glucose (mg/dL) 119 H (70-110) mg/dL Calcium (8.7-10.3) mg/dL Urine Blood (Negative) Urine Mucus (None) /hpf Assessment and Plan Assessment: - Acute kidney injury, suspected urinary retention. Resolved. Nephrology consult. Stop Toradol. No evidence of hypotension Follow-up outpatient -Morbid obesity BMI 54.7. Patient has undergone sleeve gastrectomy. Weight loss measures. Postoperative: Removal of lap band and sleeve gastrectomy by and per Dr. Miller. Bariatric clear liquid diet. -Diabetes mellitus type 2, on oral hypoglycemic. Hold.-Glucotrol XL 20 mg. Trulicity 1.5 mg subcu Saturday,. Follow Accu-Cheks sliding scale -Hyperlipidemia Lipitor 20 mg -GERD Pepcid 20 mg as needed -Depression Desyrel -Essential hypertension Lopressor hydrochlorothiazide 100/50 one tablet daily- -Osteoarthritis Pain meds when necessary -Obstructive sleep apnea CPAP Thank you for consulting us, we will follow up with you
[2022-11-14 13:46] VITALS: BP 126/65; PULSE 72; RESP 16; TEMP 97.6
--- NOTE | 2022-11-14 14:23 | P.DS ---
Providers Date of admission: 11/12/22 06:15 Expected date of discharge: 11/14/22 Attending physician: Catracho Miller Consults: 11/12/22 10:03 Consult Physician Routine Consulting Provider: Chaz Rubio Consult Reason/Comments: med manag Do you want consulting provider notified?: Yes 11/13/22 11:32 Consult Physician Urgent Consulting Provider: Dragan Hyatt Consult Reason/Comments: abelino Do you want consulting provider notified?: Yes Primary care physician: Gail Mojica Hospital Course: Discharge diagnosis 1. Morbid obesity 2. Acute kidney injury Hospital course This is a 47-year-old female with a history of morbid obesity. Status post laparoscopic removal of lap band system and laparoscopic sleeve gastrectomy. Patient tolerated surgery well. Pain control. Tolerating diet. Has been up and ambulating. Having flatus. Afebrile. Patient did have mild acute kidney injury has improved with fluids and discontinuation of the KELY inhibitor, hydrochlorothiazide and Toradol. Patient seen and cleared by nephrology for discharge. Patient is stable for discharge. Please refer to chart for any further details. Physician Credit Assessment Analyst note has been reviewed by physician. Signing provider agrees with the documented findings, assessment, and plan of care. Patient Condition at Discharge: Stable Plan - Discharge Summary Discharge Rx Participant: No New Discharge Prescriptions: New Simethicone 40 mg/0.6 ml Drops [Mylicon Drops] 40 mg PO PCHS PRN #30 ml PRN Reason: Gas Omeprazole [PriLOSEC] 40 mg PO DAILY #30 cap HYDROcodone/APAP 5-325MG [[place] 5-325] 1 tab PO Q6HR PRN 2 Days #5 tab PRN Reason: Pain bisacodyL [Dulcolax] 5 mg PO DAILY PRN #10 tab PRN Reason: Constipation Ondansetron Odt [Zofran Odt] 4 mg PO Q8HR PRN #9 tab PRN Reason: Nausea Metoprolol Tartrate [Lopressor] 100 mg PO QAM 30 Days #60 tab Continue [place]-3 Acid Ethyl Esters [Lovaza] 2 gm PO BID Dulaglutide [Trulicity] 1.5 mg SQ TH Minocycline HCl [Minocin] 100 mg PO BID traZODone HCL [Desyrel] 100 mg PO HS Metformin Er 750mg 1,500 mg PO HS Atorvastatin [Lipitor] 20 mg PO QAM DULoxetine HCL [Cymbalta] 60 mg PO QAM Discontinued glipiZIDE XL [Glucotrol XL] 20 mg PO QAM Metoprolol/Hydrochlorothiazide [Lopressor Hct 100-25 mg Tab] 1 tab PO QAM lisinopriL [Zestril] 5 mg PO HS Discharge Medication List Atorvastatin [Lipitor] 20 mg PO QAM 06/21/22 [History] DULoxetine HCL [Cymbalta] 60 mg PO QAM 06/21/22 [History] Dulaglutide [Trulicity] 1.5 mg SQ TH 06/21/22 [History] Metformin Er 750mg 1,500 mg PO HS 06/21/22 [History] [place]-3 Acid Ethyl Esters [Lovaza] 2 gm PO BID 06/21/22 [History] traZODone HCL [Desyrel] 100 mg PO HS 06/21/22 [History] Minocycline HCl [Minocin] 100 mg PO BID 11/08/22 [History] HYDROcodone/APAP 5-325MG [[place] 5-325] 1 tab PO Q6HR PRN 2 Days #5 tab 11/14/22 [Rx] Metoprolol Tartrate [Lopressor] 100 mg PO QAM 30 Days #60 tab 11/14/22 [Rx] Omeprazole [PriLOSEC] 40 mg PO DAILY #30 cap 11/14/22 [Rx] Ondansetron Odt [Zofran Odt] 4 mg PO Q8HR PRN #9 tab 11/14/22 [Rx] Simethicone 40 mg/0.6 ml Drops [Mylicon Drops] 40 mg PO PCHS PRN #30 ml 11/14/22 [Rx] bisacodyL [Dulcolax] 5 mg PO DAILY PRN #10 tab 11/14/22 [Rx] Follow up Appointment(s)/Referral(s): Shan Waddell DO [REFERRING] - 1 Week Dragan Hyatt DO [STAFF PHYSICIAN] - 1 Week Catracho Miller MD [STAFF PHYSICIAN] - 1 Week Activity/Diet/Wound Care/Special Instructions: activity is restricted till you see your doctor we recommend to check your glucose 4 times a day before each meal and at bed time , keep the results in a log book and bring it to your doctor upon your appointment date if your glucose is less than 70 or more than 400 then call 911 and come to emergency room No driving while taking [place] No lifting over 10 pounds Shower daily. No soaking or tub baths for 2 weeks Very light activity until you are reevaluated at your follow up appointment with your surgeon Discharge Disposition: HOME SELF-CARE
[2022-11-15] MEDS ORDERED: Dulaglutide [Trulicity] 1.5 MG/0.5 ML Each SQ SCH (09:00)
== END 2022-11-14 16:06 | disposition home or self-care (01) | DRG 619 ==
LOC: 2ORMAIN 06:15 → 4SSUR 14:59
PROVIDERS: ADMIT Surgery; ATTEND Surgery
PROC: 0DB64Z3 Excision of Stomach, Percutaneous Endoscopic Approach, Vertical (ICD-10-PCS; principal; 2022-11-12 07:30)
PROC: 0DP64CZ Removal of Extraluminal Device from Stomach, Percutaneous Endoscopic Approach (ICD-10-PCS; 2022-11-12 07:30)
DX: E66.01 Morbid (severe) obesity due to excess calories (principal); N17.0 Acute kidney failure with tubular necrosis; E78.5 Hyperlipidemia, unspecified; E88.89 Other specified metabolic disorders; I10 Essential (primary) hypertension; K21.9 Gastro-esophageal reflux disease without esophagitis; Z68.43 Body mass index [BMI] 50.0-59.9, adult; N14.19 Nephropathy induced by other drugs, medicaments and biological substances; T46.4X5A Adverse effect of angiotensin-converting-enzyme inhibitors, initial encounter; X58.XXXA Exposure to other specified factors, initial encounter; Y92.239 Unspecified place in hospital as the place of occurrence of the external cause; E28.2 Polycystic ovarian syndrome; F32.A Depression, unspecified; G47.33 Obstructive sleep apnea (adult) (pediatric); R13.10 Dysphagia, unspecified; E11.42 Type 2 diabetes mellitus with diabetic polyneuropathy; M19.90 Unspecified osteoarthritis, unspecified site; R33.8 Other retention of urine; N99.89 Other postprocedural complications and disorders of genitourinary system; I48.91 Unspecified atrial fibrillation; G43.909 Migraine, unspecified, not intractable, without status migrainosus; Z79.01 Long term (current) use of anticoagulants; E11.65 Type 2 diabetes mellitus with hyperglycemia; Z79.84 Long term (current) use of oral hypoglycemic drugs; Z79.899 Other long term (current) drug therapy; Z82.49 Family history of ischemic heart disease and other diseases of the circulatory system; Z88.1 Allergy status to other antibiotic agents; Z88.0 Allergy status to penicillin; Z88.8 Allergy status to other drugs, medicaments and biological substances; Z98.84 Bariatric surgery status; Z87.19 Personal history of other diseases of the digestive system
CPT/HCPCS: 80048; 80051; 81001; 81025; 82310; 82565; 83735; 84100; 84520; 85025; 85027; 88307; 88342; 94640; 94760; 94762

== ENCOUNTER → 2022-11-16 | Outpatient (CLI) | payer OTHER ==
[2022-11-16 10:07] VITALS: BP 116/63; PULSE 61; RESP 13; TEMP 98.1; BMI 53.5
== END ==
LOC: BARWHC3 09:12
PROVIDERS: ATTEND Surgery
DX: E66.01 Morbid (severe) obesity due to excess calories (principal); Z98.84 Bariatric surgery status
CPT/HCPCS: 99211

== ENCOUNTER → 2022-12-03 | Outpatient (CLI) | payer OTHER ==
[2022-12-03 10:03] VITALS: BP 138/83; PULSE 56; TEMP 98.1; BMI 52.2
--- NOTE | 2022-12-03 18:16 | P.HPBAR ---
Bariatric H&P - History & Physicial H&P Date: 12/03/22 History & Physicial: Visit/CC: sleeve F/U Patient initial contact: Initial weight: Initial weight in pounds: Height: 5 ft 5.5 in Initial BMI: Last weight: Current weight: 144.696 kg Current weight in pounds: 319.00 Current BMI: 52.2 [place] body weight (based on NIH guidelines): 57.833 kg Excess body weight loss: The patient is a 47 year-old F who presents for Bariatric Assessment. Patient has complaints of some swelling at her LAP-BAND port site. The patient had a previous seroma which was drained there. She feels a seroma has recurred. She is also concerned that she may developing a new abscess in her breast were her previous abscess was. Past Medical History Past Medical History: Atrial Fibrillation, Blood Disorder, Diabetes Mellitus, Eye Disorder, GERD/Reflux, Hyperlipidemia, Hypertension, Neurologic Disorder, Osteoarthritis (OA), Sleep Apnea/CPAP/BIPAP Additional Past Medical History / Comment(s): HX MIGRAINES, NONE IN YRS. HX 2 EPISODES OF AFIB. USES CPAP MACHINE. RIGHT EYE DRY MACULAR DEGENERATION, LEFT EYE WET MACULAR DEGENERATION. PRONE TO CYSTS. "LOW BLOOD COUNTS", hx blood transfusions X3, last 7 yrs ago. Neuropathy bilateral feet. History of Any Multi-Drug Resistant Organisms: None Reported Past Surgical History: Bariatric Surgery, Section, Hernia Repair Additional Past Surgical History / Comment(s): Umbilical hernia repair, Lap Band 2006, COLONOSCOPY/EGD, I&D LEFT BREAST ABSCESS. lap band removed, gastric sleeve 11/12/22 Past Anesthesia/Blood Transfusion Reactions: No Reported Reaction Additional Past Anesthesia/Blood Transfusion Reaction / Comm: Hx blood transfusions X3 with no problems, last 7 yrs ago. Past Psychological History: Depression Smoking Status: Never smoker Past Alcohol Use History: None Reported Past Drug Use History: None Reported - Past Family History Father Family Medical History: Coronary Artery Disease (CAD), Diabetes Mellitus Mother Family Medical History: Cancer, Thyroid Disorder Additional Family Medical History / Comment(s): Breast cancer. Surgical - Exam Vital Signs Temp Pulse BP 98.1 F 56 L 138/83 12/03/22 09:46 12/03/22 09:46 12/03/22 09:46 - General well developed - Abdomen Abdomen is soft. There is evidence of some swelling at the level of LAP-BAND port site. There is no sign of infection. Her previous breast abscess site shows no signs of infection. Bariatric Assessment & Plan Plan: Patient's LAP-BAND port site was aspirated approximately 10 mL of seroma fluid was removed. Patient will continue Bactrim. She'll follow-up in my office in 2 days for recheck. Bariatric Checklist Checklist: Plan: Checklist: EGD: 1. Hiatal hernia: 2. H. Pylori: HgbA1c: Vitamin D: Smoking: Primary care physician referral: Dr. Mojica Psychiatry clearance: Cardiology clearance: Sleep study: Diet journal: VTE risk score: VTE risk level: Rehab needs at discharge:
== END ==
LOC: BARWHC3 09:19
PROVIDERS: ATTEND Surgery
DX: E66.01 Morbid (severe) obesity due to excess calories (principal); I48.91 Unspecified atrial fibrillation; E11.9 Type 2 diabetes mellitus without complications; K21.9 Gastro-esophageal reflux disease without esophagitis; E78.5 Hyperlipidemia, unspecified; I10 Essential (primary) hypertension; M19.90 Unspecified osteoarthritis, unspecified site; G47.30 Sleep apnea, unspecified; Z71.3 Dietary counseling and surveillance; Z68.43 Body mass index [BMI] 50.0-59.9, adult; Z88.0 Allergy status to penicillin; Z88.8 Allergy status to other drugs, medicaments and biological substances; Z88.1 Allergy status to other antibiotic agents; Z79.84 Long term (current) use of oral hypoglycemic drugs; Z79.85 Long-term (current) use of injectable non-insulin antidiabetic drugs; Z98.84 Bariatric surgery status; Z46.51 Encounter for fitting and adjustment of gastric lap band
CPT/HCPCS: 97803; 99212

== ENCOUNTER → 2023-01-07 | Outpatient (CLI) | payer OTHER ==
[2023-01-07 10:39] VITALS: BP 132/84; PULSE 54; TEMP 98.1; BMI 52.4
--- NOTE | 2023-01-09 08:09 | P.HPBAR ---
Bariatric H&P - History & Physicial H&P Date: 01/07/23 History & Physicial: Visit/CC: two month follow up Patient initial contact: Initial weight: Initial weight in pounds: Height: 5 ft 5.5 in Initial BMI: Last weight: Current weight: 145.15 kg Current weight in pounds: 320.00 Current BMI: 52.4 [facility] body weight (based on NIH guidelines): 57.833 kg Excess body weight loss: The patient is a 47 year-old F who presents for Bariatric Assessment. Patient resents today for [facility] follow-up. Her weight is stable. She has minimal GERD. She denies any dysphagia. Past Medical History Past Medical History: Atrial Fibrillation, Blood Disorder, Diabetes Mellitus, Eye Disorder, GERD/Reflux, Hyperlipidemia, Hypertension, Neurologic Disorder, Osteoarthritis (OA), Sleep Apnea/CPAP/BIPAP Additional Past Medical History / Comment(s): HX MIGRAINES, NONE IN YRS. HX 2 EPISODES OF AFIB. USES CPAP MACHINE. RIGHT EYE DRY MACULAR DEGENERATION, LEFT EYE WET MACULAR DEGENERATION. PRONE TO CYSTS. "LOW BLOOD COUNTS", hx blood transfusions X3, last 7 yrs ago. Neuropathy bilateral feet. History of Any Multi-Drug Resistant Organisms: None Reported Past Surgical History: Bariatric Surgery, Section, Hernia Repair Additional Past Surgical History / Comment(s): Umbilical hernia repair, Lap Band 2005, COLONOSCOPY/EGD, I&D LEFT BREAST ABSCESS. lap band removed, gastric sleeve 11/12/22 Past Anesthesia/Blood Transfusion Reactions: No Reported Reaction Additional Past Anesthesia/Blood Transfusion Reaction / Comm: Hx blood transfusions X3 with no problems, last 7 yrs ago. Past Psychological History: Depression Smoking Status: Never smoker Past Alcohol Use History: None Reported Past Drug Use History: None Reported - Past Family History Father Family Medical History: Coronary Artery Disease (CAD), Diabetes Mellitus Mother Family Medical History: Cancer, Thyroid Disorder Additional Family Medical History / Comment(s): Breast cancer. Surgical - Exam Vital Signs Temp Pulse BP 98.1 F 54 L 132/84 01/07/23 10:34 01/07/23 10:34 01/07/23 10:34 - General well developed, well nourished, no distress - Eyes PERRL - ENT normal pinna - Abdomen Abdomen: soft, non tender Bariatric Assessment & Plan Plan: Patient's GERD is minimal she'll be observed. She will follow-up in 4 weeks. Patient was offered to see the dietitian today. Patient declined. She'll work on her improving her dietary choices. Bariatric Checklist Checklist: Plan: Checklist: EGD: 1. Hiatal hernia: 2. H. Pylori: HgbA1c: Vitamin D: Smoking: Primary care physician referral: Dr. Mojica Psychiatry clearance: Cardiology clearance: Sleep study: Diet journal: VTE risk score: VTE risk level: Rehab needs at discharge:
== END ==
LOC: BARWHC3 09:43
PROVIDERS: ATTEND Surgery
DX: K21.9 Gastro-esophageal reflux disease without esophagitis (principal); E66.01 Morbid (severe) obesity due to excess calories; F32.A Depression, unspecified; I48.91 Unspecified atrial fibrillation; E11.9 Type 2 diabetes mellitus without complications; E78.5 Hyperlipidemia, unspecified; I10 Essential (primary) hypertension; M19.90 Unspecified osteoarthritis, unspecified site; G47.30 Sleep apnea, unspecified; G43.909 Migraine, unspecified, not intractable, without status migrainosus; Z86.69 Personal history of other diseases of the nervous system and sense organs; Z98.84 Bariatric surgery status; Z68.43 Body mass index [BMI] 50.0-59.9, adult; Z88.0 Allergy status to penicillin; Z88.8 Allergy status to other drugs, medicaments and biological substances; Z88.1 Allergy status to other antibiotic agents; Z79.85 Long-term (current) use of injectable non-insulin antidiabetic drugs; Z79.84 Long term (current) use of oral hypoglycemic drugs
CPT/HCPCS: 97803; 99211

== ENCOUNTER → 2023-02-04 | Outpatient (CLI) | payer OTHER ==
[2023-02-04 11:28] VITALS: BP 127/76; PULSE 62; TEMP 97.8; BMI 48.9
--- NOTE | 2023-02-04 12:22 | P.HPBAR ---
Bariatric H&P - History & Physicial H&P Date: 02/04/23 History & Physicial: Visit/CC: gastric sleeve F/U Patient initial contact: Initial weight: Initial weight in pounds: Height: 5 ft 5.5 in Initial BMI: Last weight: Current weight: 135.624 kg Current weight in pounds: 299.00 Current BMI: 48.9 [facility] body weight (based on NIH guidelines): 57.833 kg Excess body weight loss: The patient is a 47 year-old F who presents for Bariatric Assessment. Patient stated well. She's lost approximately 21 pounds since her last visit. She's had minimal GERD. Past Medical History Past Medical History: Atrial Fibrillation, Blood Disorder, Diabetes Mellitus, Eye Disorder, GERD/Reflux, Hyperlipidemia, Hypertension, Neurologic Disorder, Osteoarthritis (OA), Sleep Apnea/CPAP/BIPAP Additional Past Medical History / Comment(s): HX MIGRAINES, NONE IN YRS. HX 2 EPISODES OF AFIB. USES CPAP MACHINE. RIGHT EYE DRY MACULAR DEGENERATION, LEFT EYE WET MACULAR DEGENERATION. PRONE TO CYSTS. "LOW BLOOD COUNTS", hx blood transfusions X3, last 7 yrs ago. Neuropathy bilateral feet. History of Any Multi-Drug Resistant Organisms: None Reported Past Surgical History: Bariatric Surgery, Section, Hernia Repair Additional Past Surgical History / Comment(s): Umbilical hernia repair, Lap Band 2005, COLONOSCOPY/EGD, I&D LEFT BREAST ABSCESS. lap band removed, gastric sleeve 11/12/22 Past Anesthesia/Blood Transfusion Reactions: No Reported Reaction Additional Past Anesthesia/Blood Transfusion Reaction / Comm: Hx blood transfusions X3 with no problems, last 7 yrs ago. Past Psychological History: Depression Smoking Status: Never smoker Past Alcohol Use History: None Reported Past Drug Use History: None Reported - Past Family History Father Family Medical History: Coronary Artery Disease (CAD), Diabetes Mellitus Mother Family Medical History: Cancer, Thyroid Disorder Additional Family Medical History / Comment(s): Breast cancer. Surgical - Exam Vital Signs Temp Pulse BP 97.8 F 62 127/76 02/04/23 09:10 02/04/23 09:10 02/04/23 09:10 - General well developed, well nourished, no distress - Eyes PERRL - ENT normal pinna, normal nares - Neck no masses - Respiratory normal expansion - Cardiovascular Rhythm: regular - Abdomen Abdomen: soft, non tender Bariatric Assessment & Plan Plan: Patient is doing well status post sleeve gastrectomy. She will follow-up in 4 weeks. Her GERD is minimal and will be observed. Bariatric Checklist Checklist: Plan: Checklist: EGD: 1. Hiatal hernia: 2. H. Pylori: HgbA1c: Vitamin D: Smoking: Primary care physician referral: Dr. Mojica Psychiatry clearance: Cardiology clearance: Sleep study: Diet journal: VTE risk score: VTE risk level: Rehab needs at discharge:
== END ==
LOC: BARWHC3 09:06
PROVIDERS: ATTEND Surgery
DX: K21.9 Gastro-esophageal reflux disease without esophagitis (principal); E66.01 Morbid (severe) obesity due to excess calories; F32.A Depression, unspecified; I48.91 Unspecified atrial fibrillation; E78.5 Hyperlipidemia, unspecified; E11.40 Type 2 diabetes mellitus with diabetic neuropathy, unspecified; I10 Essential (primary) hypertension; M19.90 Unspecified osteoarthritis, unspecified site; G47.30 Sleep apnea, unspecified; G43.909 Migraine, unspecified, not intractable, without status migrainosus; Z98.84 Bariatric surgery status; Z86.69 Personal history of other diseases of the nervous system and sense organs; Z86.2 Personal history of diseases of the blood and blood-forming organs and certain disorders involving the immune mechanism; Z68.42 Body mass index [BMI] 45.0-49.9, adult; Z88.0 Allergy status to penicillin; Z88.1 Allergy status to other antibiotic agents; Z88.8 Allergy status to other drugs, medicaments and biological substances; Z79.85 Long-term (current) use of injectable non-insulin antidiabetic drugs; Z79.84 Long term (current) use of oral hypoglycemic drugs
CPT/HCPCS: 99211

== ENCOUNTER → 2024-05-18 | Day surgery (SDC) | payer OTHER ==
--- NOTE | 2024-05-25 15:17 | MM ---
Reason for Exam: Post Procedure Mammogram. Last mammogram was performed 8 year(s) and 11 month(s) ago. Patient History: Menarche at age 11. Patient has no children. Postmenopausal. Hormonal Contraceptives, from age 18 until age 20. Mother had breast cancer, age 68. Risk Values: Selena 5 year model risk: 2.0%. NCI Lifetime model risk: 16.6%. Prior Study Comparison: 06/22/2015 Screening Mammogram, Unknown. 07/12/2016 Left Diagnostic Mammogram, [facility]. 01/15/2017 Left Diagnostic Mammogram, [facility]. Tissue Density: Left: The breasts are heterogeneously dense, which may obscure small masses. Findings: There is a surgical clip at the 11:00 position of the left breast appears to be in the area of biopsy. Appears to be in good position in close proximity to the area of biopsy. Pathology Description: Location: 11 o'clock. Marker Left Behind. Needle Type: Bard 14g x 10cm Cores: 6 Skin Nicks: 1 Gauge: 14 Pathology Results: Result: Benign, Fat necrosis. Pathology and radiology were reviewed. Findings are concordant. LEFT BREAST, 11:00, ULTRASOUND GUIDED CORE BIOPSY: Inflamed fat necrosis with acute and chronic mastitis and fibrosis. Negative for malignancy. Favored abscess present. Overall Assessment: Benign Assessment: MG diagnostic mammo LT wo CAD. - Left: Benign, BI-RAD 2. Management: Diagnostic Mammogram of the left breast in 6 months. Electronically signed and approved by: Hamlet Javed M.D. Radiologis
== END ==
LOC: RADUSWWP 12:04
PROVIDERS: ATTEND Surgery
DX: N64.1 Fat necrosis of breast (principal); N61.0 Mastitis without abscess; R92.8 Other abnormal and inconclusive findings on diagnostic imaging of breast; Z78.0 Asymptomatic menopausal state
CPT/HCPCS: 88305; 77065; 19083; A4648

== ENCOUNTER → 2024-06-03 | Outpatient (CLI) | payer OTHER ==
--- NOTE | 2024-06-03 15:23 | MM ---
Reason for Exam: Clinical finding. Last mammogram was performed 9 year(s) and 0 month(s) ago. Patient History: Menarche at age 11. Patient has no children. Postmenopausal. Hormonal Contraceptives, from age 18 until age 20. 05/18/2024, Benign US breast needle core LT on the left side. Mother had breast cancer, age 68. Risk Values: Selena 5 year model risk: 2.3%. NCI Lifetime model risk: 19.3%. Prior Study Comparison: 07/12/2016 Left Diagnostic Mammogram, [facility]. 01/15/2017 Left Diagnostic Mammogram, [facility]. 05/18/2024 Left MG diagnostic mammo LT wo CAD., [facility]. Tissue Density: Left: There are scattered areas of fibroglandular density. Findings: Analyzed By CAD. Microclip upper inner quadrant from benign biopsy 1 month ago. In the axilla, we note prominent varices. Fatty replaced but prominent lymph node in the left axilla seen in 2017 is not appreciable on the current exam. No suspicious microcalcification or discrete abnormality is seen. Overall Assessment: Incomplete: need additional imaging evaluation, BI-RAD 0 Management: Diagnostic Breast Ultrasound of the left breast. [facility], , 06/03/2024 3:20 PM. Electronically signed and approved by: Adelina Gonzalez M.D. Radiologist
--- NOTE | 2024-06-03 15:41 | USB ---
Reason for Exam: Clinical finding. Patient History: Menarche at age 11. Patient has no children. Postmenopausal. Hormonal Contraceptives, from age 18 until age 20. 05/18/2024, Benign US breast needle core LT on the left side. Mother had breast cancer, age 68. Risk Values: Selena 5 year model risk: 2.3%. NCI Lifetime model risk: 19.3%. Technique: Method: Targeted. Prior Study Comparison: 07/12/2016 Left Diagnostic Mammogram, [facility]. 01/15/2017 Left Diagnostic Mammogram, [facility]. 05/18/2024 Left MG diagnostic mammo LT wo CAD., [facility]. Findings: The axilla of the left breast was scanned. Targeted axillary ultrasound was performed corresponding to the patient's lump. There is a lobulated heterogeneous hypoechoic area in the axilla measuring 4.8 x 2.3 cm showing some internal flow. Possible large lymph node or other etiology. We note a large, fatty replaced lymph node on the patient's 2016 exam. Tissue sampling recommended given that this is a palpable abnormality. Overall Assessment: Suspicious, BI-RAD 4 Management: Ultrasound Core Biopsy of the left breast. Results were given to the patient verbally at the time of exam. [facility], , 06/03/2024 3:38 PM. Electronically signed and approved by: Adelina Gonzalez M.D. Radiologist
== END | disposition home or self-care (01) ==
LOC: RADUSWWP 14:57
PROVIDERS: ATTEND Surgery
DX: N63.20 Unspecified lump in the left breast, unspecified quadrant (principal); R92.332 Mammographic heterogeneous density, left breast; Z78.0 Asymptomatic menopausal state; Z92.0 Personal history of contraception; Z80.3 Family history of malignant neoplasm of breast
CPT/HCPCS: 77065; 76642; G0279; 77061

== ENCOUNTER → 2024-06-03 | Outpatient (CLI) | payer OTHER ==
[2024-06-03 12:44] VITALS: BP 180/92; PULSE 83; RESP 16; TEMP 97.9
--- NOTE | 2024-06-03 13:36 | P.GSCN ---
History of Present Illness Consult date: 06/03/24 Reason for Consult: abnormal left breast mammogram History of present illness: Arun is a 49 year old female seen in consultation for Gail Mojica regarding a left breast mammographic abnormality. She had a bilateral screening mammogram done on 04-08-24 which led to a left breast ultrasound on 04-13-24. This led to a left breast ultrasound guided core biopsy of an area of echogenicity 1.6 by 1.6 cm in size on 05-18-24 which was benign concordant fat necrosis and ?abscess. There was a question of a second area in the breast and it was discussed and reviewed with Dr. Cleveland who recommended a repeat left breast diagnostic mammogram. This was identified on a routine mammogram the patient did not feel any new lumps masses or nodules of concern in either breast. Has had an abscess in the left breast at the site of the mammographic abnormality in 2022 which was drained by open surgical drainage. Has not had any other surgery on her breast. She does not have any recent infection or trauma of the breast. She is not complaining of any recent nipple discharge or skin changes. Send she had drainage of the abscess in the left breast she has had nipple inversion on that side. She is not complaining of any fever or chills at this time. note 04-28-24 Gail Mojica reviewed caffiene: 2 cups coffee/day nicotine: none chocolate: weekly BCP: used when in her 20's, also for polycystic ovarian disease hormones: none Family History: mother: breast cancer in her 60's maternal aunt: pancreatic cancer Hormonal History: menarche: 11 , age at : 33 menopause: 46 Surgical History: umbilical hernia repair lap band done and removed to have a gastric sleeve Medical History: HTN type 2 diabetes neuropathy macular degeneration atrial fib; no blood thinners diabetes high BMI sleep apnea anemia blood transfusions infection in her finger Social History: nicotine: none alcohol: none drugs: none Review of Systems - Constitutional Denies fever, Denies weight loss - EENT Eyes: bilateral as per HPI Ears: deny: decreased hearing, tinnitus Ears, nose, mouth and throat: Denies dysphagia - Breasts bilateral: as per HPI - Cardiovascular Denies chest pain, Denies shortness of breath - Respiratory Denies cough, Denies 7 - Gastrointestinal Reports as per HPI - Genitourinary Genitourinary: Denies dysuria, Denies hematuria Menstruation: Reports postmenopausal - Musculoskeletal Reports as per HPI - Integumentary Denies rash, Denies unusual bruising - Neurological Denies headaches, Denies syncope - Psychiatric Reports as per HPI, Reports depression - Endocrine Reports as per HPI - Hematologic/Lymphatic Denies easy bleeding, Denies easy bruising - Allergic/Immunologic Reports as per HPI, Reports seasonal allergies Past Medical History Past Medical History: Atrial Fibrillation, Blood Disorder, Diabetes Mellitus, Eye Disorder, GERD/Reflux, Hyperlipidemia, Hypertension, Neurologic Disorder, Osteoarthritis (OA), Sleep Apnea/CPAP/BIPAP Additional Past Medical History / Comment(s): HX MIGRAINES, NONE IN YRS. HX 2 EPISODES OF AFIB. USES CPAP MACHINE. RIGHT EYE DRY MACULAR DEGENERATION, LEFT EYE WET MACULAR DEGENERATION. PRONE TO CYSTS. "LOW BLOOD COUNTS", hx blood transfusions X3, last 7 yrs ago. Neuropathy bilateral feet and hands. 05-11-24 Current treatment for bone infection on finger History of Any Multi-Drug Resistant Organisms: None Reported Past Surgical History: Bariatric Surgery, Section, Hernia Repair Additional Past Surgical History / Comment(s): Umbilical hernia repair, Lap Band 2005, COLONOSCOPY/EGD, I&D LEFT BREAST ABSCESS. lap band removed, gastric sleeve 11/12/22 Past Anesthesia/Blood Transfusion Reactions: No Reported Reaction Additional Past Anesthesia/Blood Transfusion Reaction / Comm: Hx blood transfusions X3 with no problems, last 7 yrs ago. Past Psychological History: Depression Smoking Status: Never smoker Past Alcohol Use History: None Reported Past Drug Use History: None Reported - Past Family History Father Family Medical History: Coronary Artery Disease (CAD), Diabetes Mellitus Mother Family Medical History: Cancer, Thyroid Disorder Additional Family Medical History / Comment(s): Breast cancer. Medications and Allergies Home Medications Medication Instructions Recorded Confirmed Type Atorvastatin [Lipitor] 20 mg PO QAM 06/21/22 06/03/24 History DULoxetine HCL [Cymbalta] 60 mg PO QAM 06/21/22 06/03/24 History Metformin Er 750mg 750 mg PO HS 06/21/22 06/03/24 History traZODone HCL [Desyrel] 100 mg PO HS 06/21/22 06/03/24 History Minocycline HCl [Minocin] 100 mg PO BID 11/08/22 06/03/24 History Omeprazole [PriLOSEC] 40 mg PO DAILY #30 cap 11/14/22 06/03/24 Rx Allergies Allergy/AdvReac Type Severity Reaction Status Date / Time amoxicillin [From Augmentin] Allergy Rash/Hives Verified 06/03/24 12:41 clavulanic acid Allergy Rash/Hives Verified 06/03/24 12:41 [From Augmentin] Penicillins Allergy Rash/Hives Verified 06/03/24 12:41 vancomycin Allergy Dyspnea Verified 06/03/24 12:41 Surgical - Exam Vital Signs Temp Pulse Resp BP Pulse Ox 97.9 F 83 16 180/92 96 06/03/24 12:41 06/03/24 12:41 06/03/24 12:41 06/03/24 12:41 06/03/24 12:41 - General no distress - Eyes normal ocular movement - Neck trachea midline - Respiratory normal respiratory effort, clear to auscultation - Cardiovascular Rhythm: regular Heart Sounds: normal: S1, S2 - Abdomen Abdomen: soft, non tender, no guarding, no rigid, no rebound - Integumentary normal turgor - Neurologic no disoriented, no combative - Musculoskeletal neuropathy - Psychiatric oriented to time, oriented to person, oriented to place, speech is normal, memory intact Breast Exam: BRA: 4X sports bra inspection: Left breast nipple inversion, bilateral grade 2/3 ptosis Right breast: Multi positional exam no dominant masses or nodules of concern Right axilla: No adenopathy of concern Left breast: Multi positional exam no discrete dominant masses or nodules of concern in the breast Left axilla: Fullness in the left axilla approximately 4 x 4 cm in size freely mobile Findings of hidradenitis in the left axilla Results Bilateral breast mammogram on 04-08-[address] Gonzalez from radiology Left breast ultrasound 04-13-[address] Gonzalez from radiology Assessment and Plan Assessment: Impression: Fibrocystic breast changes Prior history of left breast cyst/abscess 12:00 area where radiographic abnormality is noted Second radiographic abnormality in left breast for which Dr. Gonzalez has requested a repeat diagnostic left breast mammogram Fullness in left axilla for which an ultrasound will be performed Plan: Left breast diagnostic mammogram Left breast ultrasound/axillary ultrasound to evaluate fullness left axillary area Follow-up after above done Repeat left breast mammogram in 6 months with physician exam at that time as well Depending on radiographic findings of above we will determine what we will do with the left axillary fullness and whether any further evaluation needs to be done of the second radiographic site noted in the left breast CC: Dhara Mojica
== END ==
LOC: WWCWWP 11:44
PROVIDERS: ATTEND Surgery
DX: N60.12 Diffuse cystic mastopathy of left breast (principal); Z88.0 Allergy status to penicillin; Z88.1 Allergy status to other antibiotic agents; Z88.8 Allergy status to other drugs, medicaments and biological substances

== ENCOUNTER → 2024-06-09 | Day surgery (SDC) | payer OTHER ==
--- NOTE | 2024-06-12 12:28 | USB ---
Risk Values: Selena 5 year model risk: 2.3%. NCI Lifetime model risk: 19.3%. Prior Study Comparison: 01/15/2017 Left Diagnostic Mammogram, [facility]. 05/18/2024 Left MG diagnostic mammo LT wo CAD., [facility]. 06/03/2024 Left MG 3D diag mammo w/cad LT, [facility]. Pathology Description: Location: axilla. Marker Left Behind. Needle Type: Celero Cores: 2 Gauge: 12 The procedure of ultrasound guided core biopsy was explained to the patient. Benefits, alternatives, and risks were discussed. An informed consent was then obtained. The patient was placed in supine positioning for imaging and for the procedure. Preprocedure ultrasound redemonstrates a oval circumscribed isoechoic area measuring roughly 4.1 x 2.6 cm the left axilla favoring a lipoma. The overlying skin was prepped and draped in usual sterile fashion. Lidocaine buffered with bicarbonate was used as anesthetic into the skin and subcutaneous tissue . Lidocaine with epinephrine is used into the deeper tissue up to area of concern in the left breast. Under ultrasound guidance, a vacuum assisted biopsy gun device was used to obtain 2 core samples. Following this, a biopsy clip was left in lesion. The patient tolerated the procedure well without any immediate complication. The patient was kept in the radiology department for short stay after the procedure and then discharged home in stable condition. Postprocedure mammogram: Not performed due to location in axilla. Mammogram technologist could not successfully images area. The clip deployment was felt successful during real-time ultrasound with image saved. Impression: Successful, uncomplicated ultrasound guided core biopsy of area of concern in the left breast, full pathology results to follow. Low to intermediate index of suspicion noted at time of procedure. [facility], , 06/09/2024 11:07 AM. Pathology Results: Result: Benign. Pathology and radiology were reviewed. Findings are concordant. LEFT AXILLA, CORE BIOPSY: Benign lymph node with partial fat replacement and adjacent fibroadipose tissue. See note. Notes It is noted that the specimen is somewhat limited, and may not be completely outside energy sales representatives of a clinically or radiographically suspicious lymph node. Recommend clinical and imaging study correlation with follow up of the patient as clinically indicated. Overall Assessment: Benign Management: Diagnostic Breast Ultrasound of the left breast in 6 months. Electronically signed and approved by: Get Light M.D.
== END ==
LOC: RADUSWWP 08:19
PROVIDERS: ATTEND Surgery
DX: R92.8 Other abnormal and inconclusive findings on diagnostic imaging of breast (principal); R59.0 Localized enlarged lymph nodes
CPT/HCPCS: 88305; 19083; 38505; A4648

== ENCOUNTER → 2024-07-02 | Outpatient (CLI) | payer OTHER ==
[2024-07-02 10:18] VITALS: BP 151/81; PULSE 83; RESP 18; TEMP 98.5
--- NOTE | 2024-07-02 10:47 | P.PN ---
Subjective Progress Note Date: 07/02/24 Principal diagnosis: adenopathy of the left axilla/biopsy benign History of Present Illness: abnormal left breast mammogram/ left axillary adenopathy History of present illness: Arun is a 49 year old female seen in consultation for Gail Mojica regarding a left breast mammographic abnormality. She had a bilateral screening mammogram done on 04-08-24 which led to a left breast ultrasound on 04-13-24. This led to a left breast ultrasound guided core biopsy of an area of echogenicity 1.6 by 1.6 cm in size on 05-18-24 which was benign concordant fat necrosis and ?abscess. There was a question of a second area in the breast and it was discussed and reviewed with Dr. Cleveland who recommended a repeat left breast diagnostic mammogram. The patient on examination was noted to have some fullness in the left axilla. She subsequently underwent a left breast diagnostic mammogram as well as a left breast axillary ultrasound in 06 03 24. This revealed a lobulated heterogeneous hypoechoic area in the axilla measuring 4.8 x 2.3 cm showing some internal flow. Tissue sampling was recommended. No other areas in the left breast reported to be of concern. Tisue sampling was done on 06-09-24 which was benign concordant but with limited sample This was identified on a routine mammogram the patient did not feel any new lumps masses or nodules of concern in either breast. Has had an abscess in the left breast at the site of the mammographic abnormality in 2022 which was drained by open surgical drainage. Has not had any other surgery on her breast. She does not have any recent infection or trauma of the breast. She is not complaining of any recent nipple discharge or skin changes. Since she had drainage of the abscess in the left breast she has had nipple inversion on that side. 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 will see Ortho today; she is presently on an antibiotic for this as well as minocycline for the boils Objective - Vital Signs Vital signs: Vital Signs Temp 98.5 F 07/02/24 10:15 Pulse 83 07/02/24 10:15 Resp 18 07/02/24 10:15 BP 151/81 07/02/24 10:15 Pulse Ox 100 07/02/24 10:15 FiO2 Intake & Output 07/01/24 07/02/24 07/02/24 18:59 06:59 18:59 Weight 136.078 kg - Constitutional General appearance: Present: cooperative - EENT Eyes: Present: EOMI ENT: Present: hearing grossly normal - Neck Neck: Present: normal ROM - Respiratory Respiratory: bilateral: CTA - Cardiovascular Rhythm: regular Heart sounds: normal: S1, S2 - Integumentary Integumentary Comment(s): She has no cervical, or groin adenopathy of concern, she has no right axillary adenopathy, she has multiple nodes in the left axilla the largest being approximately 4 cm Integumentary: Present: normal turgor - Musculoskeletal Musculoskeletal: Present: gait normal - Psychiatric Psychiatric: Present: A&O x's 3, appropriate affect, intact judgment & insight - Additional findings Additional findings: Breast Exam: 4X sports bra Inspection: Left breast nipple inversion bilateral grade 2/3 ptosis Right breast: Multi positional exam no dominant masses or nodules of concern Right axilla no adenopathy of concern Left breast Multi positional exam no discrete dominant masses or nodules of concern in the breast Left axilla: Fullness in the left axilla approximately 4 x 4 cm freely mobile, hidradenitis in the left axilla Assessment and Plan Assessment: Impression: MRSA right hand Left axillary adenopathy/core biopsy benign Left hidradenitis of the axilla Fibrocystic breast changes Polycystic ovarian disease Plan: Appointment with infectious disease in [place] Dr. Gunn Follow-up 1 month Discussed with the patient and her close surveillance of the adenopathy, at this time the core biopsy was felt to be benign concordant. The node however is large and the adenopathy appears to be isolated to the left axilla. She does have potential cause for this with some hidradenitis in that area. My recommendation is that she see infectious disease for possible treatment of this especially with a complicated case that she also has MRSA in the right hand. She will follow-up in 1 month. She will follow-up sooner any questions or concerns. We have discussed surgical resectional biopsy of a lymph node but if we can treat the cause of the adenopathy and this resolves then we would follow conservatively. Matilda Mojica
== END ==
LOC: WWCWWP 10:04
PROVIDERS: ATTEND Surgery
DX: A49.02 Methicillin resistant Staphylococcus aureus infection, unspecified site (principal); L73.2 Hidradenitis suppurativa; N60.19 Diffuse cystic mastopathy of unspecified breast; E28.2 Polycystic ovarian syndrome; R59.0 Localized enlarged lymph nodes; Z88.0 Allergy status to penicillin; Z88.1 Allergy status to other antibiotic agents; Z88.8 Allergy status to other drugs, medicaments and biological substances

== ENCOUNTER → 2024-07-31 | Outpatient (CLI) | payer OTHER ==
[2024-07-31 14:24] VITALS: BP 169/78; PULSE 70; RESP 18; TEMP 98.3
--- NOTE | 2024-07-31 14:33 | P.PN ---
Subjective Progress Note Date: 07/31/24 Principal diagnosis: adenopathy Subjective Progress Note Date: 07-31-24 Principal diagnosis: adenopathy of the left axilla/biopsy benign History of Present Illness: abnormal left breast mammogram/ left axillary adenopathy History of present illness: 07-02-24 Arun is a 49 year old female seen in consultation for Gail Mojica regarding a left breast mammographic abnormality. She had a bilateral screening mammogram done on 04-08-24 which led to a left breast ultrasound on 04-13-24. This led to a left breast ultrasound guided core biopsy of an area of echogenicity 1.6 by 1.6 cm in size on 05-18-24 which was benign concordant fat necrosis and ?abscess. There was a question of a second area in the breast and it was discussed and reviewed with Dr. Cleveland who recommended a repeat left breast diagnostic mammogram. The patient on examination was noted to have some fullness in the left axilla. She subsequently underwent a left breast diagnostic mammogram as well as a left breast axillary ultrasound in 06 03 24. This revealed a lobulated heterogeneous hypoechoic area in the axilla measuring 4.8 x 2.3 cm showing some internal flow. Tissue sampling was recommended. No other areas in the left breast reported to be of concern. Tissue sampling was done on 06-09-24 which was benign concordant but with limited sample This was identified on a routine mammogram the patient did not feel any new lumps masses or nodules of concern in either breast. Has had an abscess in the left breast at the site of the mammographic abno rmality in 2022 which was drained by open surgical drainage. Has not had any other surgery on her breast. She does not have any recent infection or trauma of the breast. She is not complaining of any recent nipple discharge or skin changes. Since she had drainage of the abscess in the left breast she has had nipple inversion on that side. 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 Gunn from infectious disease for evaluation of the left axillary adenopathy, he did not find a source for this and felt that resection may be reasonable for definitive diagnosis. 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 Social history: Nicotine:none alcohol: none drugs: none Objective - Constitutional General appearance: Present: cooperative - EENT Eyes: Present: EOMI ENT: Present: hearing grossly normal - Neck Neck: Present: normal ROM - Respiratory Respiratory: bilateral: CTA - Cardiovascular Rhythm: regular Heart sounds: normal: S1, S2 - Integumentary Integumentary Comment(s): right hand swollen MRSA being treated by ortho Integumentary: Present: normal turgor - Musculoskeletal Musculoskeletal Comment(s): Ecchymotic soft tissue mass right lower extremity approximately 8 cm x 8 cm Musculoskeletal: Present: gait normal - Psychiatric Psychiatric: Present: A&O x's 3, appropriate affect, intact judgment & insight - Additional findings Additional findings: Breast Exam: 4X sports bra Inspection: Left breast nipple inversion bilateral grade 2/3 ptosis Right breast: Multi positional exam no dominant masses or nodules of concern Right axilla no adenopathy of concern Left breast Multi positional exam no discrete dominant masses or nodules of concern in the breast Left axilla: Fullness in the left axilla approximately 4 x 4 cm freely mobile, hidradenitis in the left axilla paul not appear to have changed in size patient has no cervical or right axillary or groin adenopathy of concern There is left axillary adenopathy the largest node measures approximately 4 cm x 2 cm in size on examination Liver not enlarged Spleen not enlarged Assessment and Plan Assessment: Impression: MRSA right hand Left axillary adenopathy/core biopsy benign Left hidradenitis of the axilla Fibrocystic breast changes Polycystic ovarian disease Diabetic Plan: Repeat ultrasound of the left axilla to evaluate whether the lymph node has changed in size and follow-up after this is done If there is no change in the size of the lymph node would consider operative resection or rebiopsy Referral to vascular surgery regarding soft tissue lesion right lower extremity CC: Gail Mojica
== END ==
LOC: WWCWWP 14:12
PROVIDERS: ATTEND Surgery
DX: R59.0 Localized enlarged lymph nodes (principal); N60.19 Diffuse cystic mastopathy of unspecified breast; L73.2 Hidradenitis suppurativa; E28.2 Polycystic ovarian syndrome; E11.40 Type 2 diabetes mellitus with diabetic neuropathy, unspecified; Z88.0 Allergy status to penicillin; Z88.1 Allergy status to other antibiotic agents

== ENCOUNTER → 2024-07-31 | Outpatient (CLI) | payer OTHER ==
--- NOTE | 2024-08-03 07:23 | USB ---
Reason for Exam: Follow-up at short interval from prior study. Patient History: Menarche at age 11. Patient has no children. Postmenopausal. Hormonal Contraceptives, from age 18 until age 20. 06/09/2024, Benign US biopsy breast VAD LT on the left side. 05/18/2024, Benign US breast needle core LT on the left side. Mother had breast cancer, age 68. Risk Values: Selena 5 year model risk: 3.0%. NCI Lifetime model risk: 23.8%. Technique: Method: Targeted. Prior Study Comparison: 01/15/2017 Left Diagnostic Mammogram, [facility]. 05/18/2024 Left MG diagnostic mammo LT wo CAD., [facility]. 06/03/2024 Left MG 3D diag mammo w/cad LT, [facility]. Findings: The axilla of the left breast was scanned. Technique utilized:US breast axilla LT Image; Ultrasound imaging of: All 4 quadrants, the retroareolar region and axilla. Preclude biopsy lymph node remains in the axilla measuring up to 2.9 cm. Biopsy clip present. Overall Assessment: Benign, BI-RAD 2 Management: Screening Mammogram of both breasts in 1 year. A clinical breast exam by your physician is recommended on an annual basis and results should be correlated with mammographic findings. This exam should not preclude additional follow-up of suspicious palpable abnormalities. Results were given to the patient verbally at the time of exam. [facility], Workstation: [email or web address], 07/31/2024 4:10 PM. Electronically signed and approved by: Pawel Muller DO
== END | disposition home or self-care (01) ==
LOC: RADUSWWP 14:50
PROVIDERS: ATTEND Surgery
DX: N63.20 Unspecified lump in the left breast, unspecified quadrant (principal); Z78.0 Asymptomatic menopausal state; Z80.3 Family history of malignant neoplasm of breast; Z92.0 Personal history of contraception

== ENCOUNTER → 2024-09-17 | Outpatient (CLI) | payer OTHER ==
--- NOTE | 2024-09-18 08:34 | USB ---
Patient History: Menarche at age 11. Patient has no children. Postmenopausal. Hormonal Contraceptives, from age 18 until age 20. 06/09/2024, Benign US biopsy breast VAD LT on the left side. 05/18/2024, Benign US breast needle core LT on the left side. Mother had breast cancer, age 68. Risk Values: Selena 5 year model risk: 3.0%. NCI Lifetime model risk: 23.8%. Technique: Method: Targeted. Prior Study Comparison: 01/15/2017 Left Diagnostic Mammogram, [facility]. 05/18/2024 Left MG diagnostic mammo LT wo CAD., [facility]. 06/03/2024 Left MG 3D diag mammo w/cad LT, [facility]. 07/31/2024 Left US breast axilla LT, [facility]. Findings: The axilla of the right breast was scanned. Technique utilized:US breast axilla RT Image; Ultrasound imaging of: All 4 quadrants, the retroareolar region and axilla. Right axillary lymph node with cortex measuring up to 4 mm. Since of choledochal flow within the cortex..Technique utilized:US breast axilla RT Image; Ultrasound imaging of: Axilla Right axillary lymph node with cortex measuring up to 4 mm. With some morphology is indeterminate. Correlate for history of malignancy within the right breast. Overall Assessment: Probably benign, BI-RAD 3 Management: Diagnostic Breast Ultrasound of the right breast in 6 months. A clinical breast exam by your physician is recommended on an annual basis and results should be correlated with mammographic findings. This exam should not preclude additional follow-up of suspicious palpable abnormalities. Results were given to the patient verbally at the time of exam. [facility], , 09/18/2024 7:36 AM. Electronically signed and approved by: Pawel Muller DO
== END | disposition home or self-care (01) ==
LOC: RADUSWWP 14:47
PROVIDERS: ATTEND Surgery
DX: N63.10 Unspecified lump in the right breast, unspecified quadrant (principal); Z78.0 Asymptomatic menopausal state; Z80.3 Family history of malignant neoplasm of breast; Z92.0 Personal history of contraception

== ENCOUNTER → 2024-09-17 | Outpatient (CLI) | payer OTHER ==
[2024-09-17 14:02] VITALS: BP 156/69; PULSE 89; RESP 16; TEMP 98.4
--- NOTE | 2024-09-17 14:43 | P.PN ---
Subjective Progress Note Date: 09/17/24 Principal diagnosis: benign adenopathy 09-17-24 Principal diagnosis: History of Present Illness: abnormal left breast mammogram/ left axillary adenopathy History of present illness: Arun is a 49 year old female seen in consultation for Gail Mojica regarding a left breast mammographic abnormality. She had a bilateral screening mammogram done on 04-08-24 which led to a left breast ultrasound on 04-13-24. This led to a left breast ultrasound guided core biopsy of an area of echogenicity 1.6 by 1.6 cm in size on 05-18-24 which was benign concordant fat necrosis and ?abscess. There was a question of a second area in the breast and it was discussed and reviewed with Dr. Cleveland who recommended a repeat left breast diagnostic mammogram. The patient on examination was noted to have some fullness in the left axilla. She subsequently underwent a left breast diagnostic mammogram as well as a left breast axillary ultrasound in 06 03 24. This revealed a lobulated hetero geneous hypoechoic area in the axilla measuring 4.8 x 2.3 cm showing some internal flow. Tissue sampling was recommended. No other areas in the left breast reported to be of concern. Tissue sampling was done on 06-09-24 which was benign concordant but with limited sample This was identified on a routine mammogram the patient did not feel any new lumps masses or nodules of concern in either breast. Has had an abscess in the left breast at the site of the mammographic abnormality in 2022 which was drained by open surgical drainage. Has not had any other surgery on her breast. She does not have any recent infection or trauma of the breast. She is not complaining of any recent nipple discharge or skin changes. Since she had drainage of the abscess in the left breast she has had nipple inversion on that side. 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 Gunn from infectious disease for evaluation of the left axillary adenopathy, he did not find a source for this and felt that resection may be reasonable for definitive diagnosis. 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 Polycystic ovarian disease Social history: Nicotine:none alcohol: none drugs: none Objective - Vital Signs Vital signs: Vital Signs Temp 98.4 F 09/17/24 13:59 Pulse 89 09/17/24 13:59 Resp 16 09/17/24 13:59 BP 156/69 09/17/24 13:59 Pulse Ox 99 09/17/24 13:59 FiO2 Intake & Output 09/16/24 09/17/24 09/17/24 18:59 06:59 18:59 Weight 136.078 kg - Constitutional General appearance: Present: cooperative - EENT Eyes: Present: EOMI ENT: Present: hearing grossly normal - Neck Neck: Present: normal ROM - Respiratory Respiratory: bilateral: CTA - Cardiovascular Rhythm: regular Heart sounds: normal: S1, S2 - Integumentary Integumentary: Present: normal turgor - Psychiatric Psychiatric: Present: A&O x's 3, appropriate affect, intact judgment & insight - Additional findings Additional findings: Breast Exam: 4X sports bra Inspection: Left breast nipple inversion bilateral grade 2/3 ptosis Right breast: Multi positional exam no dominant masses or nodules of concern Right axilla no adenopathy of concern; fullness approximately 4 x 4 cm which may represent a lipoma Left breast Multi positional exam no discrete dominant masses or nodules of concern in the breast Left axilla: Fullness in the left axilla approximately 4 x 4 cm freely mobile, hidradenitis appears to have healed, adjacent to the fullness in the left axilla is an area approximately 3 x 2 cm which appears to be slightly firmer I suspect this may be a lymph node adjacent to a lipoma patient has no cervical or right axillary or groin adenopathy of concern There is left axillary adenopathy the largest node measures approximately 4 cm x 2 cm in size on examination Liver not enlarged Spleen not enlarged Assessment and Plan Assessment: Impression: MRSA right hand Left axillary adenopathy/core biopsy benign/persistent adenopathy Left hidradenitis of the axilla improved Fibrocystic breast changes Polycystic ovarian disease Diabetic Fullness of the right axilla suspect lipoma Plan: Right axillary ultrasound Operative excision of the lymph node of concern in the left axilla, as well as possible lipoma, would recommend needle localization of the lymph node of concern clearance Matilda Mojica clearance Dr. Weber orthopedic MD, located in [facility]; patient with a history of MRSA right hand Operative procedure: Needle localization of lymph node of concern left axilla with resection in the operating room as well as resection of soft tissue tissue mass left axilla We have discussed repeat ultrasound-guided core biopsy versus resection in the operating room. The patient would prefer an open resection which she feels will be more definitive. Risk and benefits of the procedure discussed with the patient. Risk include but are not limited to bleeding, infection, reaction to the anesthetic. Consent: I have discussed the risks, benefits and alternative therapies for the above-mentioned procedure and for both sedation/analgesia as well as necessary blood product administration, if indicated, as they pertain to this patient. The patient has indicated understanding and acceptance of the risks and procedures discussed. CC: Gail Mojica
== END ==
LOC: WWCWWP 13:43
PROVIDERS: ATTEND Surgery
DX: N60.19 Diffuse cystic mastopathy of unspecified breast (principal); A49.02 Methicillin resistant Staphylococcus aureus infection, unspecified site; E28.2 Polycystic ovarian syndrome; E11.9 Type 2 diabetes mellitus without complications; L73.2 Hidradenitis suppurativa; R59.0 Localized enlarged lymph nodes; Z88.0 Allergy status to penicillin; Z88.1 Allergy status to other antibiotic agents